=== PATIENT | male | born 1955 | race African-American/Black ===

== ENCOUNTER 2017-01-01 18:08 | Inpatient (IN) | payer OTHER ==
[~2017-01-01] VITALS: Ht 170.2 cm; Wt 68.2 kg
[~2017-01-01 18:08] MED LIST: ALDACTONE50 M1 PO; CIPRO500 M1 PO; FOLIC ACID0.4 M1 PO; K-TAB ER10 MEQ PO; LACTULOSE10 GM/153 PO; LASIX20 M1 PO; PROPRANOLOL HCL20 M1 PO; XIFAXAN550 M1 PO
--- NOTE | 2017-01-01 18:12 | NUR ---
61 YO MALE TO TRIAGE FROM HOME. PER EMS FAMILY CALLED BECAUSE THEY WANTED PTS LIVER CHECKED. PT HX OF ETOH ABUSE AND CIRRHOSIS. PT ARRIVES ALERT, CONFUSED. DENIES PAIN AT THIS TIME.
--- NOTE | 2017-01-01 18:17 | NUR ---
PA STUDENT AT BEDSIDE FOR EVAL
--- NOTE | 2017-01-01 18:18 | ED AMS/SEIZURE/WEAK/DIZZY ---
History of Present Illness General Chief Complaint: Altered Mental Status Stated Complaint: AMS Source: patient, old records, EMS Exam Limitations: confusion, poor historian, intoxication (possible) Allergies Coded Allergies: No Known Allergies (12/13/15) Reconcile Medications Folic Acid 0.4 MG TABLET 1 TAB PO DAILY VITAMIN SUPPORT Furosemide (Lasix) 20 MG TABLET 1 TAB PO DAILY cirrhosis Lactulose 10 GM/15 ML SOLUTION 45 ML PO TID cirrhosis Potassium Chloride (K-Tab ER) 10 MEQ TABLET.ER 1 TAB PO DAILY supplement Propranolol HCl 20 MG TABLET 1 TAB PO BID UNKNOWN (Reported) Rifaximin (Xifaxan) 550 MG TABLET 1 TAB PO BID cirrhosis Spironolactone 100 MG TABLET 1 TAB PO BID DIURETIC (Reported) Triage Note: 61 YO MALE TO TRIAGE FROM HOME. PER EMS FAMILY CALLED BECAUSE THEY WANTED PTS LIVER CHECKED. PT HX OF ETOH ABUSE AND CIRRHOSIS. PT ARRIVES ALERT, CONFUSED. DENIES PAIN AT THIS TIME. Triage Nurses Notes Reviewed? yes Onset: Morning Duration: hour(s): Timing: single episode today Severity: moderate No Modifying Factors: none HPI: 61-year-old male brought in by ambulance to the emergency department for altered mental status. Patient states that today he drank wine and felt increasingly confused. He states that his family wanted him to be seen so that his liver could be evaluated. He has been seen here about one year ago for hepatic encephalopathy. He admits to drinking however he says that he does not drink on a daily basis. He also complains of weakness in his extremities. He admits to recent weight gait however cannot recall amount or time period. He denies fall, trauma to head, abdominal pain, chest pain, difficulty breathing.denies falls or head trauma. (LONI SPARKS,KHANH) Vital Signs & Intake/Output Vital Signs & Intake/Output Vital Signs Date Time Temp Pulse Resp B/P B/P Pulse O2 O2 Flow FiO2 Mean Ox Delivery Rate 01/02 0956 20/68 01/02 0625 98.1 62 20 120/60 96 Room Air 01/02 0600 98.1 62 20 120/60 01/02 0210 97.1 51 18 102/60 97 Room Air 01/02 0200 97.1 51 18 102/60 01/02 0111 97.8 58 18 104/57 98 Room Air 01/01 2333 96.6 63 20 103/58 100 Room Air 01/01 2013 96.9 58 18 114/61 98 Room Air 01/01 1812 99.2 70 18 115/65 98 Room Air ED Intake and Output 01/02 0000 01/01 1200 Intake Total 1200 Output Total Balance 1200 Intake, IV 1200 Patient 150 lb Weight Weight Estimated Measurement Method Past History Travel History Traveled to [place] past 21 day No Medical History Any Pertinent Medical History? 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 No (KHANH CASTILLO) Review of Systems Review of Systems Constitutional: Reports: see HPI. EENTM: Reports: no symptoms. Respiratory: Reports: no symptoms. Cardiovascular: Reports: no symptoms. GI: Reports: see HPI. Genitourinary: Reports: no symptoms. Musculoskeletal: Reports: no symptoms. Skin: Reports: no symptoms. Neurological/Psychological: Reports: see HPI. Hematologic/Endocrine: Reports: no symptoms. Immunologic/Allergic: Reports: no symptoms. All Other Systems: Reviewed and Negative (KHANH CASTILLO) Physical Exam Physical Exam General Appearance: no apparent distress Comments: Well-developed well-nourished person in no acute distress HEENT: Normal EENT exam, extraocular motion intact, no nystagmus. Pupils equally round and reactive to light and accommodation. +scleral icterus bilaterally. Nose is atraumatic. Pharynx normal. No swelling or edema. SLIGHTLY DRY ORAL MUCOSA. Neck: Supple, no lymphadenopathy, normal range of motion without pain or tenderness Back: Nontender, Full range of motion Cardiovascular: Regular rate and rhythms no murmurs rubs or gallops, normal JVP Respiratory: Chest nontender. No respiratory distress.breath sounds clear to auscultation bilaterally Abdomen: Soft, nontender nondistended, no appreciable organomegaly. Normal bowel sounds. No ascites, NO REBOUND OR GAURDING. Extremity: No edema, no calf tenderness to palpation, normal and equal pulses. Neuro: Alert oriented to self only, motor sensory normal, cranial nerves II through XII grossly intact, +asterixis. PATELLAR REFLEXES ARE 2 PLUS BILATERALLY. NEURO EXAM REQUIRES REDIRECTION FOR COOPERATION. UNABLE TO FOLLOW CEREBELLAR TESTING. Skin: No appreciable rash on exposed skin, skin is warm and dry. UNABLE TO APPRECIATE ANY JAUNDICE ON SKIN SECONDARY TO DARK SIN. NO NOTABLE JAUNDICE ON PALMS. Psych: Mood and affect is abnormal, memory and judgment is abnormal. Core Measures ACS in differential dx? No CVA/TIA Diagnosis: No Severe Sepsis Present: No Septic Shock Present: No (LONI SPARKS,KHANH) Progress Differential Diagnosis: alcohol intoxication, CVA/stroke, dehydration, encephalitis, electrolyte imbalance, hypoglycemia, intracranial Hem., pneumonia, sepsis, UTI/pyelo, polysubstance abuse Diagnostic Imaging: Viewed by Me: Radiology Read. Discussed w/RAD: Radiology Read. Radiology Impression: ATIENT: GIANLUCA LIM PRESENT AGE: 61 PATIENT ACCOUNT NO: [id number] : 59 LOCATION: [facility] ORDERING PHYSICIAN: KHANH SPARKS SERVICE DATE: 01/01/17 EXAM TYPE: RAD - XRY-PORTABLE CHEST XRAY EXAMINATION: XR PORTABLE CHEST CLINICAL INFORMATION: Altered mental status. COMPARISON: Portable chest x-ray 12/13/2015. TECHNIQUE: Portable frontal view of the chest was obtained. FINDINGS: The lungs are hypoinflated, but clear without focal airspace consolidation. No pleural effusions or pneumothoraces are identified. Cardiomediastinal contours are within normal limits. Soft tissues are unremarkable. No acute osseous abnormality is identified. IMPRESSION: No acute pulmonary process. DICTATED BY: DEBBI STAFFORD MD DATE/TIME DICTATED:01/01/171934 CORRECTIONAL CASEWORK SPECIALIST:TANIA DATE/TIME TRANSCRIBED:01/01/171934 CONFIDENTIAL, DO NOT COPY WITHOUT APPROPRIATE AUTHORIZATION. <Electronically signed in Other Vendor System> SIGNED BY: DEBBI STAFFORD MD 01/01/171937 Initial ED EKG: SINUS RHYTHM, BORDERLINE t ABNORMALITIES, BORDERLINE PROLONGED qt INTERVAL Prior EKG: unchanged Comments: On arrival patient is only alert to person, confused about time and situation. Placed on cardiac monitor technician. Patient has history of hepatic encephalopathy and chronic alcohol use, positive scleral icterus with asterixis. Likely hepatic encephalopathy again. 01/01/2017 7:58:13 PM swallow evaluation performed. Able to sip thin liquids without coughing or choking. 01/01/2017 7:58:25 PM lactulose suppository and IV potassium ordered. Patient will be admitted for hepatic encephalopathy. (LONI SPARKS,KHANH) Plan of Care: Orders Procedure Date/time Status Heart Healthy Diet 01/02 B Active Nursing Misc 01/02 0751 Active HEPATITIS PANEL 01/02 06 Complete CBC WITHOUT DIFFERENTIAL 01/02 06 Complete BASIC ELECTROLYTES PLUS BUN&CR 01/02 06 Complete Turn and Reposition 01/02 0245 Active Skin Integrity Protocol 01/02 0245 Active POTASSIUM 01/02 0234 Complete Vital Signs 01/02 0218 Active Teach/Educate 01/02 0218 Active Pain Treatment and Response 01/02 0218 Active Nutritional Intake, Monitor 01/02 0218 Active Isolation 01/02 0218 Active Intake & Output 01/02 0218 Active Patient Care Conference 01/02 0218 Active Activity/Ambulation 01/02 0218 Active PT Evaluate & Treat 01/02 0102 Active Pathway - chart 01/02 0102 Active House Staff 01/02 0102 Active Code Status 01/02 0102 Active Therapeutic Activities 01/02 UNK Complete PT EVAL LOW COMPLEX 20 MIN 01/02 UNK Complete Gait Training 01/02 UNK Complete Lab Add-on Test 01/02 UNK Active VTE Mechanical Prophylaxis 01/02 UNK Active Vital Signs 01/02 UNK Active CIWA 01/02 UNK Active PHYSICIAN CONSULT 01/02 UNK Active Patient Data 01/01 2356 Active Lab Add-on Test 01/01 2353 Active Add-on Test (ER Only) 01/01 2345 Active PHOSPHORUS 01/01 2250 Complete MAGNESIUM 01/01 2250 Complete Intake & Output 01/01 2203 Active POTASSIUM 01/01 2200 Complete Admit to inpatient 01/01 2031 Active PARTIAL THROMBOPLASTIN TIME 01/01 1827 Complete PROTHROMBIN TIME 01/01 1827 Complete Telemetry/E Business Project Manager 01/01 181 Active URINE DRUG SCREEN FOR ER ONLY 01/01 181 Complete URINALYSIS 01/01 181 Complete TROPONIN LEVEL 01/01 181 Complete AMMONIA 01/01 181 Complete LACTIC ACID 01/01 1817 Complete ETHANOL 01/01 1817 Complete COMPREHENSIVE METABOLIC PANEL 01/01 1817 Complete CBC WITHOUT DIFFERENTIAL 01/01 1817 Complete EKG 01/01 1817 Active Current Medications Sig/Memo Start time Last Medication Dose Stop Time Status Admin Furosemide 20 MG DAILY 01/02 1000 AC 01/02 (Lasix) 0956 Potassium Chloride 10 MEQ DAILY 01/02 1000 AC 01/02 (K-Dur) 0956 Propranolol HCl 20 MG BID 01/02 1000 AC 01/02 (Inderal 20 MG 0956 Tablet) Rifaximin 550 MG BID 01/02 1000 AC 01/02 (XIFAXAN) 0956 Spironolactone 100 MG BID 01/02 1000 AC 01/02 (Aldactone) 0956 Lactulose 10 GM TID 01/02 0015 AC 01/02 (Enulose 20GM/30ML) 0957 Potassium Chloride 40 MEQ Q13H 01/01 2345 AC 01/02 (KCl 40MEQ in D5W NS 0055 1000ML) Dextrose/Sodium 1,000 ML Chloride (D5-Normal Saline) Potassium Chloride 10 MEQ ONCE ONE 01/01 1945 CAN 01/01 1946 Potassium Chloride 10 MEQ ONCE ONE 01/01 1945 CAN 01/01 1946 Laboratory Tests 01/02/17 0610: Anion Gap 8, Estimated GFR > 60, BUN/Creatinine Ratio 8.9, CBC w Diff NO MAN DIFF REQ, RBC 3.27 L, MCV 94.1 H, MCH 31.8 H, RDW 16.6 H, MPV 10.1, Gran % 57.9, Lymphocytes % 19.8 L, Monocytes % 19.9 H, Eosinophils % 1.7, Basophils % 0.7, Absolute Granulocytes 3.3, Absolute Lymphocytes 1.1 L, Absolute Monocytes 1.1 H, Absolute Eosinophils 0.1, Absolute Basophils 0, PUBS MCHC 33.8, Hepatitis A IgM Ab NONREACTIVE, Hep Bs Antigen NONREACTIVE, Hep B Core IgM Ab Conf NONREACTIVE, Hepatitis C Antibody NONREACTIVE 01/02/17 0320: 01/01/17 2250: Phosphorus 2.6, Magnesium 1.6 01/01/172116: Lactic Acid Cancelled 01/01/174: Urine Opiates Screen < 100.00, Methadone Screen < 40, Barbiturate Screen < 60, Ur Phencyclidine Scrn < 6.00, Amphetamines Screen < 100, U Benzodiazepines Scrn < 85, Urine Cocaine Screen < 50, Urine Cannabis Screen < 5.00, Urine Color YEL, Urine Clarity CLEAR, Urine pH 7.0, Ur Specific [place] 1.010, Urine Protein NEG, Urine Ketones NEG, Urine Nitrite NEG, Urine Bilirubin NEG, Urine Urobilinogen 1.0, Ur Leukocyte Esterase TRACE H, Ur Microscopic SEDIMENT EXAMINED, Urine WBC 1-3 H, Ur Epithelial Cells FEW, Urine Bacteria MANY H, Urine Hemoglobin NEG, Urine Glucose NEG 01/01/17 1827: Anion Gap 12, Estimated GFR > 60, BUN/Creatinine Ratio 8.0, Glucose 123 H, Lactic Acid 1.8, Calcium 8.2 L, Total Bilirubin 2.9 H, AST 36, ALT 39, Alkaline Phosphatase 144 H, Ammonia 212 H, Troponin I < 0.01, Total Protein 7.1, Albumin 3.1 L, Globulin 4.0, Albumin/Globulin Ratio 0.8 L, PT 16.5 H, INR 1.58 H, APTT 43 H, CBC w Diff NO MAN DIFF REQ, RBC 3.52 L, MCV 93.6, MCH 31.6 H, RDW 16.9 H, MPV 9.7, Gran % 56.7, Lymphocytes % 20.5, Monocytes % 19.0 H, Eosinophils % 2.7, Basophils % 1.1, Absolute Granulocytes 3.5, Absolute Lymphocytes 1.3, Absolute Monocytes 1.2 H, Absolute Eosinophils 0.2, Absolute Basophils 0.1, PUBS MCHC 33.7, Serum Alcohol < 10.0 Comments: 01/01/2017 8:22:03 PM patient's case discussed by me with the hospitalist. Plan repeat potassium and so long as the potassium is improving patient will be admitted to the general medical floor. (KARLA RANDALL,STEHPEN Musa) Departure Departure Time of Disposition: 1954 Disposition: STILL A PATIENT Condition: Stable Clinical Impression Primary Impression: Hepatic encephalopathy Referrals: ISRA RANDALL,JAMES VEE Departure Forms: Customer Survey General Discharge Information Admission Note Documentation of Exam: Documentation of any treatments & extenuating circumstances including Concerns Regarding Discharge (functional status, medication knowledge or non-compliance, living conditions, etc.) that warrant an admission rather than observation: Patient requiring IV potassium for hypokalemia, requiring IV hydration, lactulose for hepatic encephalopathy, trending CMP to follow potassium. Discharged at this time would be medically harmful. (KHANH CASTILLO) Admission Note Spoke With: ANNI NAQVI MD (KARLA RANDALL,STEPHEN Musa) Critical Care Note Critical Care Note Critical Care Time: 30-74 min (KHANH CASTILLO) ED Attending Observation Initial Observation Note: I have seen and personally examined GIANLUCA LIM on 01/01/17 at 1832. I agree with the current emergency department documentation. The disposition (admission or discharge) is uncertain at this time, he needs a period of observation for the following reason(s): The ED Nurse caring for this patient has been personally informed as to what the patient is being observed for. (KHANH CASTILLO)
--- NOTE | 2017-01-01 18:18 | NUR ---
DAUGHTER MARYANN [phone]
--- NOTE | 2017-01-01 18:29 | NUR ---
IV EST. BLOOD WORK DRAWN AND SENT TO LAB AT THIS TIME
[2017-01-01 18:38] LABS: ABSOLUTE BASOPHIL COUNT 0.1 /CUMM (0.0-0.2); ABSOLUTE EOSINOPHIL COUNT 0.2 /CUMM (0.0-0.7); ABSOLUTE GRANULOCYTE CT 3.5 /CUMM (1.4-6.5); ABSOLUTE LYMPH COUNT 1.3 /CUMM (1.2-3.4); ABSOLUTE MONOCYTE COUNT 1.2 /CUMM (0.10-0.60); BASOPHIL % 1.1 % (0.0-2.0); EOSINOPHIL % 2.7 % (0-5); GRANULOCYTE % 56.7 % (42.2-75.2); MEAN CORPUSCULAR HGB 31.6 PG (27.0-31.0); MEAN CORPUSCULAR HGB CONC 33.7 G/DL (33.0-37.0); MEAN CORPUSCULAR VOLUME 93.6 FL (80.0-94.0); MEAN PLATELET VOLUME 9.7 FL (7.4-10.4); PLATELET COUNT 86 /CUMM (130-400); RBC DISTRIBUTION WIDTH 16.9 % (11.5-14.5); RED BLOOD CELL CT 3.52 /CUMM (4.70-6.10); WHITE BLOOD CELL COUNT 6.2 /CUMM (4.8-10.8)
--- NOTE | 2017-01-01 19:08 | NUR ---
CRITICAL TEST RESULTS [id number] GIANLUCA LIM 61 M TESTS AND RESULTS: POTASSIUM 2.2 Results received and read back by: VENECIA VILLAGOMEZ Results received date and time: 01/01/171908 The following provider was notified of the results, and read the results back: Notified date and time: 01/01/17 at 1903
--- NOTE | 2017-01-01 19:26 | NUR ---
PT MEDICATED WITH NS INFUSING AT 500MLS/HR PER EMAR
--- NOTE | 2017-01-01 19:38 | RADIOLOGY REPORT ---
EXAMINATION: XR PORTABLE CHEST CLINICAL INFORMATION: Altered mental status. COMPARISON: Portable chest x-ray 12/13/2015. TECHNIQUE: Portable frontal view of the chest was obtained. FINDINGS: The lungs are hypoinflated, but clear without focal airspace consolidation. No pleural effusions or pneumothoraces are identified. Cardiomediastinal contours are within normal limits. Soft tissues are unremarkable. No acute osseous abnormality is identified. IMPRESSION: No acute pulmonary process.
--- NOTE | 2017-01-01 19:54 | NUR ---
BRIDGER IVEY AT BEDSIDE
--- NOTE | 2017-01-01 20:03 | NUR ---
PTS SISTER KRISTINA [phone]
[2017-01-01] MEDS ORDERED: PROPRANOLOL HCL20 M1 PO (20:33)
[2017-01-01] MEDS ORDERED: SPIRONOLACTONE100 M1 PO (20:33)
--- NOTE | 2017-01-01 20:40 | NUR ---
HOUSE STAFF AT BEDSIDE. 10 MEQ KCL INITIATED AT 100MLS/HR.
--- NOTE | 2017-01-01 21:00 | NUR ---
40 MEQ POT CHLOR PO NOW PER DR NAQVI. NO DIFFICULTY SWALLOWING. PER DR NAQVI, LACTULOSE ENEMA NOT TO ADMINISTERED UNTIL AFTER POT CHLOR INFUSION COMPLETED
--- NOTE | 2017-01-01 21:42 | NUR ---
SECOND 10 MEQ KCL INITATED AT 100MLS/HR PER EMAR
--- NOTE | 2017-01-01 22:17 | NUR ---
URINE TRIO OBTAINED AND SENT TO LAB
--- NOTE | 2017-01-01 23:04 | NUR ---
REPEAT POTASSIUM OBTAINED AND SENT TO LAB
--- NOTE | 2017-01-01 23:45 | NUR ---
CRITICAL TEST RESULTS [id number] GIANLUCA LIM 61 M TESTS AND RESULTS: POTASSIUM 2.5 Results received and read back by: VENECIA VILLAGOMEZ Results received date and time: 01/01/17 5629 The following provider was notified of the results, and read the results back: Notified date and time: 01/01/17 at 2441
[2017-01-02] VITALS (7 sets, daily range): BP systolic 102–120; BP diastolic 60–70
[2017-01-02 00:12] LABS: PT 16.5 SEC (9.4-12.5); PTT 43 SEC (25-37)
--- NOTE | 2017-01-02 00:26 | NUR ---
HOUSE STAFF AT BEDSIDE FOR PT EVAL
--- NOTE | 2017-01-02 00:33 | NUR ---
PT'S RM ASSIGNMENT 220 BED 1
--- NOTE | 2017-01-02 00:52 | History & Physical ---
QUOC [place] [place] 0051: General Information and HPI MD Statement: I have seen and personally examined GIANLUCA LEGGETT and documented this H&P. The patient is a 61 year old M who presented with a patient stated chief complaint of confusion. Source of Information: patient, old records Exam Limitations: not alert/orientated, clinical condition, confusion History of Present Illness: Mr. 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 History is obtained from patient, who is confused at the time of the interview and unable to provide detailed history, as well as ED notes and EMR. Patient was noted to be confused by his daughter who lives with him who subsequently called EMS who brought patient to the ED. Patient reports that he feels confused. He is oriented to name and place, but not time. He knows the name of the president. He admits to drinking about two beers daily but denies drinking on the day of current presentation. Patient was admitted to [facility] approximately one year ago for hepatic encephalopathy (12/13/15-12/18/15) felt to be secondary to possible UTI as well as noncompliance with outpatient medications, including lactulose and rifaximin. Patient reports that he has been following up with his licensed physical therapist Dr. Nicky Delcid at [facility] and taking his medications but cannot recall the names. He has a history of medium/large esophageal varices, but no history of bleeding, SBP or hepatorenal syndrome. Allergies/Medications Allergies: Coded Allergies: No Known Allergies (12/13/15) Home Med list Folic Acid 0.4 MG TABLET 1 TAB PO DAILY VITAMIN SUPPORT Furosemide (Lasix) 20 MG TABLET 1 TAB PO DAILY cirrhosis Lactulose 10 GM/15 ML SOLUTION 45 ML PO TID cirrhosis Potassium Chloride (K-Tab ER) 10 MEQ TABLET.ER 1 TAB PO DAILY supplement Propranolol HCl 20 MG TABLET 1 TAB PO BID UNKNOWN (Reported) Rifaximin (Xifaxan) 550 MG TABLET 1 TAB PO BID cirrhosis Spironolactone 100 MG TABLET 1 TAB PO BID DIURETIC (Reported) Compliance With Home Meds: POOR Past History Travel History Traveled to [place] past 21 day No Medical History Neurological: 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 Home Who Do You Live With? child Services at Home: None Primary Language: Kyrgyz Smoking Status: Current Everyday Smoker (About 3 Cigarettes Per Day) ETOH Use: alcoholic Illicit Drug Use: denies illicit drug use Functional Ability ADLs Unknown: dressing, eating, toileting, bathing. Ambulation: independent IADLs Unknown: shopping, housework, finances, food prep, telephone, transportation, medication admin. Employment History Employment Retired Profession/Employer [employer] Review of Systems Review of Systems Constitutional: Denies: chills, fever. EENTM: Reports: no symptoms. Cardiovascular: Reports: no symptoms. Denies: palpitations. Respiratory: Reports: cough, sputum production. GI: Denies: abdominal pain, nausea, vomiting. Genitourinary: Reports: frequency (chronic). Musculoskeletal: Reports: no symptoms. Skin: Reports: no symptoms. Neurological/Psychological: Reports: confusion. Denies: headache. Hematologic/Endocrine: Reports: no symptoms. Immunologic/Allergic: Reports: no symptoms. All Other Systems: Reviewed and Negative Exam & Diagnostic Data Last 24 Hrs of Vital Signs/I&O Vital Signs Date Time Temp Pulse Resp B/P B/P Pulse O2 O2 Flow FiO2 Mean Ox Delivery Rate 01/02 0200 97.1 51 18 102/60 01/02 0111 97.8 58 18 104/57 98 Room Air 01/01 2333 96.6 63 20 103/58 100 Room Air 01/01 2013 96.9 58 18 114/61 98 Room Air 01/01 1812 99.2 70 18 115/65 98 Room Air Intake & Output 01/02 0800 01/02 0000 01/01 1600 Intake Total 1200 Output Total Balance 1200 Intake, IV 1200 Patient 68.039 kg 68.039 kg Weight Weight Reported by Patient Estimated Measurement Method Physical Exam General Appearance Alert, No Acute Distress, Oriented to Person and Place, but Not Time, Confused Skin No Rashes Skin Temp/Moisture Exam: Warm/Dry HEENT Atraumatic, Mucous Membr. moist/pink, Scleral Icterus Neck Supple Cardiovascular Regular Rate, Normal S1, Normal S2, No Murmurs, Gallops, Rubs Lungs Clear to Auscultation Abdomen Soft, No Tenderness, Positive Bowel Sounds, Distended Neurological Asterixis Extremities No Clubbing, No Cyanosis, No Edema Breasts Bilateral gynecomastia Last 24 Hrs of Labs/Jacques: Laboratory Tests 01/01/17 2250: Phosphorus 2.6, Magnesium 1.6 01/01/172116: Lactic Acid Cancelled 01/01/172113: Urine Opiates Screen < 100.00, Methadone Screen < 40, Barbiturate Screen < 60, Ur Phencyclidine Scrn < 6.00, Amphetamines Screen < 100, U Benzodiazepines Scrn < 85, Urine Cocaine Screen < 50, Urine Cannabis Screen < 5.00, Urine Color YEL, Urine Clarity CLEAR, Urine pH 7.0, Ur Specific [place] 1.010, Urine Protein NEG, Urine Ketones NEG, Urine Nitrite NEG, Urine Bilirubin NEG, Urine Urobilinogen 1.0, Ur Leukocyte Esterase TRACE H, Ur Microscopic SEDIMENT EXAMINED, Urine WBC 1-3 H, Ur Epithelial Cells FEW, Urine Bacteria MANY H, Urine Hemoglobin NEG, Urine Glucose NEG 01/01/17 1827: Anion Gap 12, Estimated GFR > 60, BUN/Creatinine Ratio 8.0, Glucose 123 H, Lactic Acid 1.8, Calcium 8.2 L, Total Bilirubin 2.9 H, AST 36, ALT 39, Alkaline Phosphatase 144 H, Ammonia 212 H, Troponin I < 0.01, Total Protein 7.1, Albumin 3.1 L, Globulin 4.0, Albumin/Globulin Ratio 0.8 L, PT 16.5 H, INR 1.58 H, APTT 43 H, CBC w Diff NO MAN DIFF REQ, RBC 3.52 L, MCV 93.6, MCH 31.6 H, RDW 16.9 H, MPV 9.7, Gran % 56.7, Lymphocytes % 20.5, Monocytes % 19.0 H, Eosinophils % 2.7, Basophils % 1.1, Absolute Granulocytes 3.5, Absolute Lymphocytes 1.3, Absolute Monocytes 1.2 H, Absolute Eosinophils 0.2, Absolute Basophils 0.1, PUBS MCHC 33.7, Serum Alcohol < 10.0 Diagnostic Data EKG Results Normal sinus rhythm HR 65 QTc 491 CXR Results No acute pulmonary process. Assessment/Plan Assessment: Mr. 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 #Hepatic encephalopathy: In the setting of decompensated alcoholic cirrhosis likely precipitated by noncompliance with medications. Ammonia 212 on admission. Physical exam remarkable for asterixis. Total bilirubin 2.9. INR 1.58. No evidence of infection. CXR clear. UA unremarkable. Sees licensed physical therapist Dr. Delcid at [facility]. MELD score of 16 corresponding to estimated 3-month mortality of 6%. Has esophageal varices but no history of bleeding, SBP or hepatorenal syndrome. * Admit to General Medicine. * GI consult placed. Appreciate their recs. * Continue vvvab-of-czhbggzvk lactulose 10 mg PO TID titrating to 3 bowel movements per day and rifaximin 550 mg PO BID. * Continue igvzo-ac-bmcbyelcj Lasix 20 mg PO daily, spironolactone 100 mg PO BID and propranolol 20 mg PO daily. * Check hepatitis panel. #Hypokalemia: K 2.2 on initial presentation. Improved to 2.9 after aggressive IV and oral K supplementation. No EKG changes associated with hypokalemia. * Continue aggressive K supplementation with frequent K monitoring. #Alcohol dependence: Admits to drinking 2 beers daily. Serum alcohol <10 on admission. * [facility] protocol to monitor for signs/symptoms of alcohol withdrawal. * Hold Ativan for now. Diet: Heart Healthy with 2 g Na restriction DVT PPx: ALPs CODE: FULL As Ranked By This Provider Problem List: 1. Hepatic encephalopathy 2. Hypokalemia 3. Altered mental status 4. Decompensated hepatic cirrhosis 5. Alcoholic cirrhosis of liver 6. Thrombocytopenia Core Measures/Miscellaneous Acute Coronary Syndrome ACS Diagnosis: No Cerebrovascular Accident CVA/TIA Diagnosis: No Congestive Heart Failure CHF Diagnosis: No VTE (View Protocol) VTE Risk Factors: Acute medical illness, Age > 40, Smoking No [facility] VTE prophylaxis d/t: No contraindications No VTE Pharm Prophylaxis d/t: Platelets below ref range VTE Diagnosis: No VTE Type: NONE VTE Confirmed by (Test): NONE Sepsis (View Protocol) Severe Sepsis Present: No Septic Shock Septic Shock Present: No Miscellaneous Documentation Attending Case Discussed With: DRISS RANDALL,[facility] Primary Care Physician: PATIENT HAS NO PRIMARY CARE DR Patient sees these Specialists Manager Dairy Nicky Delcid MD Level of Patient Care: General Medicine HARIS COTTON 01/02/17 0237: Resident Review Statement Resident Statement: examined this patient, discussed with post graduate internship, agreed with post graduate internship Other Findings: This is a 61 years old man with alcoholic liver cirrhosis who usually follows up for care at [facility] who was brought in by ambulance after the daughter noted that is getting more confused than usual. The patient reports to continue drinking alcohol downplaying his the amount he takes to about 2 beers a day. He reports to continue taking his medication though he does not remember the names of the medications, she volunteers that he has 2-3 bowel motions a day. He denies any abdominal pain, nausea, vomiting, pain during micturition, change in urine frequency, dizziness, lightheadedness or palpitations. On arrival the patient had stable vital signs Physical examination: Patient is alert and oriented to person and place but not to time [saying it's September and the season is fall], she has tremors in the upper limbs, no spider Nevi, gynecomastia, no ascites, no edema of the lower limbs, tinge of jaundice more prominent in the eyes Labs showed anemia 11.1/33 with platelet count of 86, severe hypokalemia 2.2 repeated afraid replacement 2.5, INR of 1.58, magnesium of 1.6, T bili of 2.9, ammonia of 212, ALP of 144 and hypoalbuminemia of 3.1 U tox is negative for drugs of abuse and alcohol level was less than 10 UA shows leukocyte esterase which is high with WBC of 123 but negative nitrites Calculated meld score is 16 Assessment and plan 61 years old with known alcoholic cirrhosis presenting with episode of confusion. On presentation found to be oriented to person and place but not to time, he has tremors, gynecomastia but no ascites or peripheral edema. Patient has calculated MELD score of 16 [in November 2015 it was 14] Admitting the patient to general medicine floor Aggressive potassium correction with oral and IV potassium Started the patient on lactulose 10 g 3 times a day with target of 3 bowel motions Heart health diet with 2 g sodium restriction CIWA score while the patient is not on Ativan, to be started if start scoring Continue home liver cirrhosis medication rifaximin, spironolactone [patient has propanol on medication but her last GI notable supposed to be on Nadolol], please call to confirm medications the daughter of the patient called but could not be reached Medication claim history shows propranolol Patient is full code Alps only for DVT prophylaxis DRISS RANDALL, [facility] 01/02/17 0543: Attending MD Review Statement Attending Statement Attending MD Statement: examined this patient, discuss w/resident/PA/TELEVISION CABLE INSTALLER, agreed w/resident/PA/TELEVISION CABLE INSTALLER Attending Assessment/Plan: 61 yo M with h/o alcoholic cirrhosis s/p TIPS procedure for refractory ascites but this was downgraded because of encephalopathy (in the setting of resumption of alcohol), and eventually occluded, known medium/large varices, is brought in for evaluation of altered mentation. He continues to consume alcohol but reports not more than 2 beers per day. History is not reliable as patient is not oriented to place, person or time. He offers no complaints. Please note, I evaluated the patient about 4 hours prior to my residents did. Vitals stable. Exam: Scleral icterus+, awake, not oriented, asterixis+. Labs: Plt 86, INR 1.58, K 2.2 --> 2.5 --> 2.9, T. Bili 2.9, Alk phos 144, ammonia 212 , trop neg, UA neg, alcohol < 10, Utox neg. CXR neg. EKG SR. 1. Decompensated liver cirrhosis (MELD 16) and recurrent hepatic encephalopathy 2/2 non compliance with lactulose/rifaximin and hypokalemia. No evidence of acute infection. UA and CXR are neg. No overt bleeding. GM admit, resume lactulose TID (titrate to 3 BM's per day) and rifaximin. Replete potassium to > 4.0. Place on 2 g sodium diet, no fluid restriction. Resume lasix, propranolol and spironolactone. GI consult in AM. Check hep panel. Place on CIWA protocol, no ativan for now. DVT ppx Alps. Full code.
--- NOTE | 2017-01-02 00:52 | Admission Certification ---
Admission Certification Certification Statement - As attending physician, I certify that at the time of - admission, based on clinical presentation, severity of - symptoms, need for further diagnostic testing and - therapeutic interventions, and risk of adverse outcomes - without in-hospital treatment, in my clinical assessment, - this patient requires an acute hospital stay for a minimum - of two nights or longer. I have also considered psychsocial - factors such as support system, advanced age, financial - issues, cognitive issues, and failed out-patient treatments, - past re-admission history, safety of patient, and lack of - compliance as applicable. Specific rationale supporting this admission is: Hepatic encephalopathy.
--- NOTE | 2017-01-02 01:17 | NUR ---
PT MEDICATED WITH KCL IN D5W AT 75MLS/HR, 60 MEQ KDUR AND 1 LACTULOSE ENEMA PER EMAR
--- NOTE | 2017-01-02 03:39 | NUR ---
NURSING NOTE: LATE ENTRY. PT ARRIVED TO FLOOR FROM ED BY STRETCHER. PT IS ALERT AND ORIENTED TO SELF ONLY. BP 102/60, HR 51, MADE AWARE. 2 EKGS DONE IN ED. POTASSIM 2.5. PT GIVEN 2 IV BOLUSES AND 40 MEQ PO POTASSIUM. PT CURRENTLY RECEIVING D5W NS W/ 40 MEQ KCL @ 75 ML/HR. SEIZURE PRECAUTIONS IN PLACE FOR HEPATIC ENCEPHALOPATHY. FALL PRECAUTIONS IN PLACE. PT REPORTS HIS LAST DRINK WAS ON MONDAY 01/01 AND SAYS HE MOSTLY DRINKS BEER. PT UNABLE TO STATE HOW MUCH HE DRINKS B/C OF THE CONFUSION. PT RECEIVED LACTULOSE ENEMA IN ED. PTS SKIN INTACT, NO BREAKDOWN NOTED. ALPS ON. AWAIT FURTHER ORDERS FROM MD. INFO PACKET GIVEN. PT SHOWN HOW TO USE CALL LIGHT SYSTEM. WILL CONTINUE TO MONITOR.
--- NOTE | 2017-01-02 04:00 | NUR ---
NURSING NOTE: PT POTASSIUM LEVEL DRAWN AND CAME BACK AT 2.9. CRITICAL LAB VALUE REPORTED TO MD. 40 MEQ POTASSIUM X1 ORDERED AND GIVEN PER EMAR. PT DENIES SYMPTOMS. VSS. WILL CONTINUE TO MONITOR.
[2017-01-02 08:52] LABS: ABSOLUTE BASOPHIL COUNT 0 /CUMM (0.0-0.2); ABSOLUTE EOSINOPHIL COUNT 0.1 /CUMM (0.0-0.7); ABSOLUTE GRANULOCYTE CT 3.3 /CUMM (1.4-6.5); ABSOLUTE LYMPH COUNT 1.1 /CUMM (1.2-3.4); ABSOLUTE MONOCYTE COUNT 1.1 /CUMM (0.10-0.60); BASOPHIL % 0.7 % (0.0-2.0); EOSINOPHIL % 1.7 % (0-5); GRANULOCYTE % 57.9 % (42.2-75.2); HEMATOCRIT 30.8 % (42-52); MEAN CORPUSCULAR HGB 31.8 PG (27.0-31.0); MEAN CORPUSCULAR HGB CONC 33.8 G/DL (33.0-37.0); MEAN CORPUSCULAR VOLUME 94.1 FL (80.0-94.0); MEAN PLATELET VOLUME 10.1 FL (7.4-10.4); RBC DISTRIBUTION WIDTH 16.6 % (11.5-14.5); RED BLOOD CELL CT 3.27 /CUMM (4.70-6.10); WHITE BLOOD CELL COUNT 5.7 /CUMM (4.8-10.8)
[2017-01-02 11:22] LABS: PLATELET COUNT 63 /CUMM (130-400)
--- NOTE | 2017-01-02 12:16 | PN- Att Addend ---
Attending Addendum Attending Brief Note Patient seen and examined. Plan of care discussed with the medical team and the patient. Available lab work and radiology test reports were reviewed. Patient currently awake and appears to be oriented. Denies any abdominal pain nausea vomiting or fevers. Vital Signs Date Time Temp Pulse Resp B/P B/P Pulse O2 O2 Flow FiO2 Mean Ox Delivery Rate 01/02 0956 20/68 01/02 0625 98.1 62 20 120/60 96 Room Air 01/02 0600 98.1 62 20 120/60 01/02 0210 97.1 51 18 102/60 97 Room Air 01/02 0200 97.1 51 18 102/60 01/02 0111 97.8 58 18 104/57 98 Room Air 01/01 2333 96.6 63 20 103/58 100 Room Air 01/01 2013 96.9 58 18 114/61 98 Room Air 01/01 1812 99.2 70 18 115/65 98 Room Air Intake & Output 01/02 1600 01/02 0800 01/02 0000 Intake Total 640 1200 Output Total 250 Balance 390 1200 Intake, IV 300 1200 Intake, Oral 340 Output, Urine 250 Patient 150 lb 150 lb Weight Weight Reported by Patient Estimated Measurement Method Exam: General: Patient awake alert with slight confusion but without any distress CVS: S1 plus S2 without any murmur or gallops Chest: Few scattered crepitation without any wheeze. There is no respiratory distress. Abdomen: Soft slightly distended nontender, bowel sound present, no guarding or rebound TRAFFIC INCIDENT MANAGEMENT MANAGER: Awake alert but slightly confused but no tremors; without any focal neuro deficit and follows command appropriately Extremities: No edema; no clubbing or cyanosis noted Laboratory Tests 01/02 01/02 01/01 0610 0320 2250 Chemistry Sodium (137 - 145 mmol/L) 142 Potassium (3.5 - 5.1 mmol/L) 3.1 L 2.9 *L 2.5 *L Chloride (98 - 107 mmol/L) 113 H Carbon Dioxide (22 - 30 mmol/L) 22 Anion Gap (5 - 16) 8 BUN (9 - 20 mg/dL) 8 L Creatinine (0.7 - 1.2 mg/dL) 0.9 Estimated GFR (>60 ml/min) > 60 BUN/Creatinine Ratio (7 - 25 %) 8.9 Phosphorus (2.5 - 4.5 mg/dL) 2.6 Magnesium (1.6 - 2.3 mg/dL) 1.6 Hematology CBC w Diff NO MAN DIFF REQ WBC (4.8 - 10.8 /CUMM) 5.7 RBC (4.70 - 6.10 /CUMM) 3.27 L Hgb (14.0 - 18.0 G/DL) 10.4 L Hct (42 - 52 %) 30.8 L MCV (80.0 - 94.0 FL) 94.1 H MCH (27.0 - 31.0 PG) 31.8 H RDW (11.5 - 14.5 %) 16.6 H Plt Count (130 - 400 /CUMM) 63 L MPV (7.4 - 10.4 FL) 10.1 Gran % (42.2 - 75.2 %) 57.9 Lymphocytes % (20.5 - 51.1 %) 19.8 L Monocytes % (1.7 - 9.3 %) 19.9 H Eosinophils % (0 - 5 %) 1.7 Basophils % (0.0 - 2.0 %) 0.7 Absolute Granulocytes (1.4 - 6.5 /CUMM) 3.3 Absolute Lymphocytes (1.2 - 3.4 /CUMM) 1.1 L Absolute Monocytes (0.10 - 0.60 /CUMM) 1.1 H Absolute Eosinophils (0.0 - 0.7 /CUMM) 0.1 Absolute Basophils (0.0 - 0.2 /CUMM) 0 PUBS MCHC (33.0 - 37.0 G/DL) 33.8 Serology Hepatitis A IgM Ab (NONREACTIVE) NONREACTIVE Hep Bs Antigen (NONREACTIVE) NONREACTIVE Hep B Core IgM Ab Conf (NONREACTIVE) NONREACTIVE Hepatitis C Antibody (NONREACTIVE) NONREACTIVE 01/01 01/01 2117 2114 Chemistry Lactic Acid Cancelled Toxicology Urine Opiates Screen (>2000 NG/ML) < 100.00 Methadone Screen (>300 NG/ML) < 40 Barbiturate Screen (>200 NG/ML) < 60 Ur Phencyclidine Scrn (>25 NG/ML) < 6.00 Amphetamines Screen (>1000 NG/ML) < 100 U Benzodiazepines Scrn (>200 NG/ML) < 85 Urine Cocaine Screen (>300 NG/ML) < 50 Urine Cannabis Screen (>50 NG/ML) < 5.00 Urines Urine Color (YEL,AMB,STR) YEL Urine Clarity (CLEAR) CLEAR Urine pH (5.0 - 8.0) 7.0 Ur Specific [place] (1.001 - 1.035) 1.010 Urine Protein (NEG,<30 MG/DL) NEG Urine Ketones (NEG) NEG Urine Nitrite (NEG) NEG Urine Bilirubin (NEG) NEG Urine Urobilinogen (0.1 - 1.0 EU/dl) 1.0 Ur Leukocyte Esterase (NEG) TRACE H Ur Microscopic SEDIMENT EXAMINED Urine WBC (0 - 2 /HPF) 1-3 H Ur Epithelial Cells (NONE,FEW) FEW Urine Bacteria (NEG/NONE) MANY H Urine Hemoglobin (NEG) NEG Urine Glucose (N MG/DL) NEG 01/01 1827 Chemistry Sodium (137 - 145 mmol/L) 141 Potassium (3.5 - 5.1 mmol/L) 2.2 *L Chloride (98 - 107 mmol/L) 105 Carbon Dioxide (22 - 30 mmol/L) 24 Anion Gap (5 - 16) 12 BUN (9 - 20 mg/dL) 8 L Creatinine (0.7 - 1.2 mg/dL) 1.0 Estimated GFR (>60 ml/min) > 60 BUN/Creatinine Ratio (7 - 25 %) 8.0 Glucose (65 - 99 mg/dL) 123 H Lactic Acid (0.7 - 2.1 mmol/L) 1.8 Calcium (8.4 - 10.2 mg/dL) 8.2 L Total Bilirubin (0.2 - 1.3 mg/dL) 2.9 H AST (17 - 59 U/L) 36 ALT (21 - 72 U/L) 39 Alkaline Phosphatase (< 127 U/L) 144 H Ammonia (9 - 30 umol/L) 212 H Troponin I (<0.11 ng/ml) < 0.01 Total Protein (6.3 - 8.2 g/dL) 7.1 Albumin (3.5 - 5.0 g/dL) 3.1 L Globulin (1.9 - 4.2 gm/dL) 4.0 Albumin/Globulin Ratio (1.1 - 2.2 %) 0.8 L Coagulation PT (9.4 - 12.5 SEC) 16.5 H INR (0.90 - 1.17) 1.58 H APTT (25 - 37 SEC) 43 H Hematology CBC w Diff NO MAN DIFF REQ WBC (4.8 - 10.8 /CUMM) 6.2 RBC (4.70 - 6.10 /CUMM) 3.52 L Hgb (14.0 - 18.0 G/DL) 11.1 L Hct (42 - 52 %) 33.0 L MCV (80.0 - 94.0 FL) 93.6 MCH (27.0 - 31.0 PG) 31.6 H RDW (11.5 - 14.5 %) 16.9 H Plt Count (130 - 400 /CUMM) 86 L MPV (7.4 - 10.4 FL) 9.7 Gran % (42.2 - 75.2 %) 56.7 Lymphocytes % (20.5 - 51.1 %) 20.5 Monocytes % (1.7 - 9.3 %) 19.0 H Eosinophils % (0 - 5 %) 2.7 Basophils % (0.0 - 2.0 %) 1.1 Absolute Granulocytes (1.4 - 6.5 /CUMM) 3.5 Absolute Lymphocytes (1.2 - 3.4 /CUMM) 1.3 Absolute Monocytes (0.10 - 0.60 /CUMM) 1.2 H Absolute Eosinophils (0.0 - 0.7 /CUMM) 0.2 Absolute Basophils (0.0 - 0.2 /CUMM) 0.1 PUBS MCHC (33.0 - 37.0 G/DL) 33.7 Toxicology Serum Alcohol (<10 MG/DL) < 10.0 Assessment plan * Hepatoencephalopathy- continue current medications * Alcohol abuse- patient states that he occasionally continues to drink last drink was possibly 2 days ago; his alcohol level on admission was less than 10; patient will need to be watched for alcohol withdrawal in case he is undre reporting his alcohol use * Low platelets count likely secondary to cirrhosis * Hypokalemia- improved but potassium level still 3.1; please give oral potassium and recheck potassium tomorrow
--- NOTE | 2017-01-02 20:08 | Cons- Gastroenterology ---
General Information and HPI Consulting Request Date of Consult: 01/02/17 Requested By: DRISS RANDALL,LADONNAALAKSHMI Reason for Consult: I was called by the hospitalist service earlier today to assess encephalopathy in a patient with alcoholic cirrhosis. Source of Information: patient, old records (scant) Exam Limitations: not alert/orientated (impoved - now A & O x 3), clinical condition, fair historian History of Present Illness: 61 y/o [place] male, history of alcoholic cirrhosis, followed at the [facility] liver unit, by Dr. Champagne & most recently, by Dr. Nicky Delcid. He contacts her periodically for paracentesis, when his abdomen gets distended. He previously went for quite some time between visits at the [facility], but currently claims to be compliant. In fact, he stated that he had an abdominal ultrasound done there about a month ago, results unknown. He has no PMD. He has a history of alcohol and drug abuse. He denied any IVDA. He claimed he last snorted crack cocaine a few years ago. He is a 15 pk yr cigarette smoker. 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 The patient had TIPS at [facility] years ago, I believe for refractory ascites, as well as for large varices. His TIPS were downsized due to PSE, in the setting of ongoing EtOH abuse, & the TIPS reportedly occluded. He previously had been noncompliant with his medications, which included Inderal 20 mg BID, Lactulose 30g TID, Rifaximin 550 mg BID, Lasix 20 mg daily, Aldactone 100 mg BID, Folate 0.4 mg daily, & KCl 10 meq daily, although he claimed he was now taking them (? validity, as he cannot recall their names). He has periods of intermittent confusion and lethargy. Has a known history of cholelithiasis, with an intact GB. He claimed his only abdominal surgery was for an umbilical hernia repair. He moved in with his daughter, Yue Leggett, in 2014. She noticed he was confused, and called EMS, who brought the patient to the [place] [facility], where he arrived 01/01/17, at 6:08 p.m. Upon presentation, BP 115/65, P 70, R 18, T 99.2, O2 sat RA 98%. The patient felt confused on presentation. He was A & O x 2 (not to time). He admitted to still drinking about 2 beers a day, but denied any alcohol intake on the day of admission. The patient received IV NS bolus x 1L, along with KCl, Lactulose, & KCl in the ER. He was found to be markedly hypoK+ on admission, with K+ 2.2 (*see labs). His mentation is much improved at the time of my GI consult, & he is currently A & Ox3. He denied any history of overt GI bleeding, SBP, HRS or HPS, although records state he remotely had a duodenal ulcer, in addition to esophageal varices. He claimed he has been HIV negative in the past. He denied any history of viral hepatitis. He does have tattoos. He denied any blood transfusions. He denied using any aspirin, NSAIDs, sedative hypnotics, or recent illicit drugs. He denied any abdominal pain, GI, vomiting, GERD, odynophagia, dysphagia, early satiety, diarrhea, constipation, obstipation, tenesmus, rectal bleeding, or melena. He denied any fevers, chills, jaundice, dark urine, light stool, or pruritus. His appetite is fair. He denied any significant weight loss. He denied any recent increased abdominal girth or peripheral edema. He claimed he has not had an abdominal tap for quite some time. He has had EGD at [facility], unsure as to when last done. He admits he has not been compliant with a baseline screening colonoscopy, which had been advised by [facility]. There is no family history of GI Ca, GI disease, or inherited liver disease. It sounds like the patient's father had alcoholic pancreatitis. He denied any history of alcohol related seizures. He does have a history of alcohol withdrawal and DTs. His CIWA have been running around 2. He denied any recent head trauma. He denies any symptoms of UTI or URI. There was no chest pain or shortness of breath. He denied any rashes. He denies any arthralgias, except for DJD in the left shoulder. 01/01/17: Admission chest x-ray was unremarkable. He was last admitted to [facility] 12/13/2015 - 12/18/2015 with hepatic encephalopathy, felt to be from a combination of noncompliance with the above medications, hypokalemia, and E. Coli UTI, treated with Cipro. He had small to moderate ascites then, but as he improved clinically, his abdomen was not tapped then. 12/30/14: B12 893, folate 17.5, HgA1C 4.5 *As of 01/02/17, the patient's inpatient medications include Inderal 20 mg po BID, Aldactone 100 mg po BID, Rifaximin 550 mg po BID, KCl 10 meq daily, Lasix 20 mg daily, Lactulose 10g po TID & IVF: D5 1/2NS with 40 meq KCl/L @ 75 cc/hr. His menation has improved since admission, as per his RN. No cultures have been sent this admission. He is tolerating solids and ambulating with assistance. 01/01/17: Admission labs- WBC 6.2, H/H 11.1/33, MCV 93.6, RDW 16.9, PLT 86; glucose 123, BUN/Cr 8/1.0, GFR > 60, Na 141, *K 2.2, HCO3 24, AG 12, lactate 1.8 , Ca 8.2, Mg 1.6, PO4 2.6, albumin 3.1, globulin 4.0, TBil 2.9 (without fractionation), alk phos 144, AST 36, ALT 39, *NH3 212, troponin < 0.01, [EtOH] < 10, PT 16.5, INR 1.58, PTT 43; U/A- clear yellow, 1.010, 7.0, 1-3 WBC, many bact, few eptih, micro- otherwise neg, neg nitrite, tr esterase; *Utox - neg. 01/01/17: *Admission MELD- [facility] 16/UNOS 16 01/02/17: WBC 5.7, H/H 10.4/30.8 (after IVF), MCV 94.1, RDW 16.6, PLT 63; BUN/Cr 8/0.9, GFR > 60, Na 142, *K 3.1, HCO3 22, AG 8; Hep A Ab, Hep Bs Ag, Hep C Ab IgG, & Hep B core Ab IgM- all negative. 01/01/2017: EKG- NSR @ 65, normal axis, borderline prolonged QT interval, early transition, NSST flattening. 01/01/17: XR PORTABLE CHEST- No acute pulmonary process. Allergies/Medications Allergies: Coded Allergies: No Known Allergies (12/13/15) Home Med List: Folic Acid 0.4 MG TABLET 1 TAB PO DAILY VITAMIN SUPPORT Furosemide (Lasix) 20 MG TABLET 1 TAB PO DAILY cirrhosis Lactulose 10 GM/15 ML SOLUTION 45 ML PO TID cirrhosis Potassium Chloride (K-Tab ER) 10 MEQ TABLET.ER 1 TAB PO DAILY supplement Propranolol HCl 20 MG TABLET 1 TAB PO BID UNKNOWN (Reported) Rifaximin (Xifaxan) 550 MG TABLET 1 TAB PO BID cirrhosis Spironolactone 100 MG TABLET 1 TAB PO BID DIURETIC (Reported) Current Medications: Current Medications Sig/Memo Start time Last Medication Dose Route Stop Time Status Admin Furosemide 20 MG DAILY 01/02 1000 AC 01/02 PO 0956 Lactulose 10 GM TID 01/02 0015 AC 01/02 PO 2141 Magnesium Oxide 400 MG ONE ONE 01/02 0100 DC PO 01/02 0101 Potassium Chloride 10 MEQ DAILY 01/02 1000 AC 01/02 PO 0956 Potassium Chloride 40 MEQ ONCE ONE 01/02 0415 DC 01/02 PO 01/02 0416 0526 Potassium Chloride 0 .STK-MED ONE 01/02 0050 DC PO Potassium Chloride 60 MEQ ONCE ONE 01/01 2345 DC 01/02 PO 01/01 2346 0049 Potassium Chloride 40 MEQ Q13H 01/01 2345 AC 01/02 Dextrose/Sodium 1,000 ML IV 2138 Chloride Propranolol HCl 20 MG BID 01/02 1000 AC 01/02 PO 2149 Rifaximin 550 MG BID 01/02 1000 AC 01/02 PO 2140 Spironolactone 100 MG BID 01/02 1000 AC 01/02 PO 2149 Past History Travel History Traveled to [place] past 21 day No Medical History Blood Transfusion Hx: No Neurological: 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 EENT: NONE Cardiovascular: NONE Respiratory: NONE Gastrointestinal: esophageal varices duodenal ulcer Hepatic: cholelithiasis (GB intact), cirrhosis (alcoholic), hepatic encephalopathy Renal: NONE Musculoskeletal: degen joint disease (left shoulder) Psychiatric: alcohol dependence, substance abuse (in past- snorted crack cocaine ) Endocrine: NONE Blood Disorders: anemia, coagulopathy, thrombocytopenia (cirrhotic) Cancer(s): NONE KETTLE GIRL/Reproductive: NONE Surgical History Surgical History: hernia repair-umbilical, TIPS- "occluded", f/b [facility] Family History Relations & Conditions If Any: MOTHER, , Age 80; Cause: Diabetes. FATHER ([employer]; hx ? EtOH pancreatitis). Age 80. Psychosocial History Where Do You Live? Home Who Do You Live With? spouse (dtrYue), child Services at Home: None Primary Language: Greek Smoking Status: Current Everyday Smoker (3 cigs daily; 15 pk yr) ETOH Use: alcoholic Illicit Drug Use: denies illicit drug use (remote crack cocaine, no IVDA) Living Will? no Power of Academic Interventionist/HCP? no Other Social History: . Lives with Yue starkey. 1 son & 2 dtrs- [employer]. EtOH abuse "few beers daily" (vague- previously more). No IVDA. Previously snorted crack cocaine "a few years ago". Old tattoos. 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 Functional Ability ADLs Independent: dressing, eating, toileting, bathing. Ambulation: independent IADLs Independent: shopping, housework, finances, food prep, telephone, medication admin. Needs Assist: transportation. Employment History Employment: Retired Profession/Employer: [employer] Review of Systems Review of Systems: Full 14 point ROS otherwise noncontributory, & as above. Review of Systems Constitutional: Denies: chills, diaphoresis, fever, malaise, weakness, unexplained weight loss. EENTM: Denies: blurred vision, double vision, visual changes, eye pain, eye drainage, eye tearing, icterus, ear discharge, ear pain, ear redness, hearing changes, nasal congestion, epistaxis, nasal pain, throat pain, throat swelling, mouth pain, tooth pain. Cardiovascular: Denies: chest pain, edema, orthopena, palpitations, peripheral edema, syncope. Respiratory: Denies: cough, hemoptysis, orthopnea, short of breath, sputum production, stridor, wheezing. GI: Denies: abdominal pain, bloating, constipation, diarrhea, distention, bowel incontinence, melena, nausea, bloody stool, changes in stool, vomiting, steatorrhea. Genitourinary: Denies: discharge, dysuria, frequency, hematuria, hesitation, nocturia, pain, urgency. Musculoskeletal: Reports: joint pain (left shoulder- DJD). Denies: back pain, gout, joint swelling, muscle pain, muscle stiffness, neck pain. Skin: Denies: cysts, change in skin color, change in hair/nails, dryness, erythema, jaundice, lesions, lymphangitis, lumps, moles, rash. Neurological/Psychological: Reports: confusion (resolved), tremors (minimal). Denies: anxiety, ataxia, cognitive dysfunction, depressed, dementia, emotional problems, headache, numbness, paresthesia, pre-existing deficit, petit mal seizures, tingling, tonic -clonic seizures, unable to move lower ext, unable to move upper ext, weakness. Hematologic/Endocrine: Denies: bruising, bleeding, polyuria, polydipsia. Immunologic/Allergic: Denies: splenectomy, HIV/AIDS, lymphadenopathy. All Other Systems: Reviewed and Negative Exam & Diagnostic Data Vital Signs and I&O Vital Signs Date Time Temp Pulse Resp B/P B/P Pulse O2 O2 Flow FiO2 Mean Ox Delivery Rate 01/02 1600 97.0 29 20 120/60 01/02 1433 97.0 81 20 120/60 98 Room Air 01/02 0956 20/68 01/02 0625 98.1 62 20 120/60 96 Room Air 01/02 0600 98.1 62 20 120/60 01/02 0210 97.1 51 18 102/60 97 Room Air 01/02 0200 97.1 51 18 102/60 01/02 0111 97.8 58 18 104/57 98 Room Air 01/01 2333 96.6 63 20 103/58 100 Room Air Intake & Output 01/02 1600 01/02 0400 01/01 1600 01/01 0400 12/31 1600 12/31 0400 Intake Total 1840 1200 Output Total 250 Balance 1590 1200 Intake, IV 900 1200 Intake, Oral 940 Number 1 Bowel Movements Output, Urine 250 Patient 150 lb Weight Weight Reported by Patient Measurement Method Physical Exam: Well-developed, thin, slightly malnourished, pleasant male, in no apparent distress. Sclera muddy, but anicteric. Conjunctiva pink. Oropharynx clear. Edentulous. No oral thrush. No aphthous ulcers. Neck supple. There is no adenopathy, thyromegaly, or JVD. No peripheral stigmata of inflammatory bowel disease on exam. Positive spiders on the anterior chest wall. Positive gynecomastia B/L, without any masses or D/C. No CVA tenderness. Lungs: clear to A&P. Heart exam: regular rate rhythm, S1 and S2, without any murmur. Abdominal exam: normal bowel sounds, soft belly, mildly distended, nontender, without guarding or rebound. Umbilical scar. No palpable hernia. No mass. Liver approximately 13 cm by percussion. Negative Chiu sign. Barely palpable spleen tip. No definite fluid shift. No pulsatile mass. No epigastric bruit. Digital rectal exam: refused by patient. Extremities: without C, C, or E. No palpable cords. + Tattoos. Mild DJD. No palmar erythema. No Dupuytren's contractures. Distal pulses 1+ bilaterally. DTRs 1+ bilaterally. Right handed. CN II-XII intact. Currently, alert and oriented x 3. Minimal tremor. Positive asterixis. Results Pertinent Lab Results: Laboratory Tests 01/02 01/02 01/01 0610 0320 2250 Chemistry Sodium (137 - 145 mmol/L) 142 Potassium (3.5 - 5.1 mmol/L) 3.1 L 2.9 *L 2.5 *L Chloride (98 - 107 mmol/L) 113 H Carbon Dioxide (22 - 30 mmol/L) 22 Anion Gap (5 - 16) 8 BUN (9 - 20 mg/dL) 8 L Creatinine (0.7 - 1.2 mg/dL) 0.9 Estimated GFR (>60 ml/min) > 60 BUN/Creatinine Ratio (7 - 25 %) 8.9 Phosphorus (2.5 - 4.5 mg/dL) 2.6 Magnesium (1.6 - 2.3 mg/dL) 1.6 Hematology CBC w Diff NO MAN DIFF REQ WBC (4.8 - 10.8 /CUMM) 5.7 RBC (4.70 - 6.10 /CUMM) 3.27 L Hgb (14.0 - 18.0 G/DL) 10.4 L Hct (42 - 52 %) 30.8 L MCV (80.0 - 94.0 FL) 94.1 H MCH (27.0 - 31.0 PG) 31.8 H RDW (11.5 - 14.5 %) 16.6 H Plt Count (130 - 400 /CUMM) 63 L MPV (7.4 - 10.4 FL) 10.1 Gran % (42.2 - 75.2 %) 57.9 Lymphocytes % (20.5 - 51.1 %) 19.8 L Monocytes % (1.7 - 9.3 %) 19.9 H Eosinophils % (0 - 5 %) 1.7 Basophils % (0.0 - 2.0 %) 0.7 Absolute Granulocytes (1.4 - 6.5 /CUMM) 3.3 Absolute Lymphocytes (1.2 - 3.4 /CUMM) 1.1 L Absolute Monocytes (0.10 - 0.60 /CUMM) 1.1 H Absolute Eosinophils (0.0 - 0.7 /CUMM) 0.1 Absolute Basophils (0.0 - 0.2 /CUMM) 0 PUBS MCHC (33.0 - 37.0 G/DL) 33.8 Serology Hepatitis A IgM Ab (NONREACTIVE) NONREACTIVE Hep Bs Antigen (NONREACTIVE) NONREACTIVE Hep B Core IgM Ab Conf (NONREACTIVE) NONREACTIVE Hepatitis C Antibody (NONREACTIVE) NONREACTIVE 01/01 01/01 2117 2114 Chemistry Lactic Acid Cancelled Toxicology Urine Opiates Screen (>2000 NG/ML) < 100.00 Methadone Screen (>300 NG/ML) < 40 Barbiturate Screen (>200 NG/ML) < 60 Ur Phencyclidine Scrn (>25 NG/ML) < 6.00 Amphetamines Screen (>1000 NG/ML) < 100 U Benzodiazepines Scrn (>200 NG/ML) < 85 Urine Cocaine Screen (>300 NG/ML) < 50 Urine Cannabis Screen (>50 NG/ML) < 5.00 Urines Urine Color (YEL,AMB,STR) YEL Urine Clarity (CLEAR) CLEAR Urine pH (5.0 - 8.0) 7.0 Ur Specific [place] (1.001 - 1.035) 1.010 Urine Protein (NEG,<30 MG/DL) NEG Urine Ketones (NEG) NEG Urine Nitrite (NEG) NEG Urine Bilirubin (NEG) NEG Urine Urobilinogen (0.1 - 1.0 EU/dl) 1.0 Ur Leukocyte Esterase (NEG) TRACE H Ur Microscopic SEDIMENT EXAMINED Urine WBC (0 - 2 /HPF) 1-3 H Ur Epithelial Cells (NONE,FEW) FEW Urine Bacteria (NEG/NONE) MANY H Urine Hemoglobin (NEG) NEG Urine Glucose (N MG/DL) NEG 01/01 1827 Chemistry Sodium (137 - 145 mmol/L) 141 Potassium (3.5 - 5.1 mmol/L) 2.2 *L Chloride (98 - 107 mmol/L) 105 Carbon Dioxide (22 - 30 mmol/L) 24 Anion Gap (5 - 16) 12 BUN (9 - 20 mg/dL) 8 L Creatinine (0.7 - 1.2 mg/dL) 1.0 Estimated GFR (>60 ml/min) > 60 BUN/Creatinine Ratio (7 - 25 %) 8.0 Glucose (65 - 99 mg/dL) 123 H Lactic Acid (0.7 - 2.1 mmol/L) 1.8 Calcium (8.4 - 10.2 mg/dL) 8.2 L Total Bilirubin (0.2 - 1.3 mg/dL) 2.9 H AST (17 - 59 U/L) 36 ALT (21 - 72 U/L) 39 Alkaline Phosphatase (< 127 U/L) 144 H Ammonia (9 - 30 umol/L) 212 H Troponin I (<0.11 ng/ml) < 0.01 Total Protein (6.3 - 8.2 g/dL) 7.1 Albumin (3.5 - 5.0 g/dL) 3.1 L Globulin (1.9 - 4.2 gm/dL) 4.0 Albumin/Globulin Ratio (1.1 - 2.2 %) 0.8 L Coagulation PT (9.4 - 12.5 SEC) 16.5 H INR (0.90 - 1.17) 1.58 H APTT (25 - 37 SEC) 43 H Hematology CBC w Diff NO MAN DIFF REQ WBC (4.8 - 10.8 /CUMM) 6.2 RBC (4.70 - 6.10 /CUMM) 3.52 L Hgb (14.0 - 18.0 G/DL) 11.1 L Hct (42 - 52 %) 33.0 L MCV (80.0 - 94.0 FL) 93.6 MCH (27.0 - 31.0 PG) 31.6 H RDW (11.5 - 14.5 %) 16.9 H Plt Count (130 - 400 /CUMM) 86 L MPV (7.4 - 10.4 FL) 9.7 Gran % (42.2 - 75.2 %) 56.7 Lymphocytes % (20.5 - 51.1 %) 20.5 Monocytes % (1.7 - 9.3 %) 19.0 H Eosinophils % (0 - 5 %) 2.7 Basophils % (0.0 - 2.0 %) 1.1 Absolute Granulocytes (1.4 - 6.5 /CUMM) 3.5 Absolute Lymphocytes (1.2 - 3.4 /CUMM) 1.3 Absolute Monocytes (0.10 - 0.60 /CUMM) 1.2 H Absolute Eosinophils (0.0 - 0.7 /CUMM) 0.2 Absolute Basophils (0.0 - 0.2 /CUMM) 0.1 PUBS MCHC (33.0 - 37.0 G/DL) 33.7 Toxicology Serum Alcohol (<10 MG/DL) < 10.0 Imaging/Other Studies: 01/01/2017: EKG- NSR @ 65, normal axis, borderline prolonged QT interval, early transition, NSST flattening. 01/01/17: XR PORTABLE CHEST- No acute pulmonary process. Assessment/Plan Assessment/Recommendations: 61 y/o [place] male, history of alcoholic cirrhosis, followed at the [facility] liver unit, by Dr. Champagne & most recently, by Dr. Nicky Delcid. He contacts her periodically for paracentesis, when his abdomen gets distended. He previously went for quite some time between visits at the [facility], but currently claims to be compliant. In fact, he stated that he had an abdominal ultrasound done there about a month ago, results unknown. He has no PMD. He has a history of alcohol and drug abuse. He denied any IVDA. He claimed he last snorted crack cocaine a few years ago. He is a 15 pk yr cigarette smoker. 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 The patient had TIPS at [facility] years ago, I believe for refractory ascites, as well as for large varices. His TIPS were downsized due to PSE, in the setting of ongoing EtOH abuse, & the TIPS reportedly occluded. He previously had been noncompliant with his medications, which included Inderal 20 mg BID, Lactulose 30g TID, Rifaximin 550 mg BID, Lasix 20 mg daily, Aldactone 100 mg BID, Folate 0.4 mg daily, & KCl 10 meq daily, although he claimed he was now taking them (? validity, as he cannot recall their names). He has periods of intermittent confusion and lethargy. Has a known history of cholelithiasis, with an intact GB. He claimed his only abdominal surgery was for an umbilical hernia repair. He moved in with his daughter, Yue Leggett, in 2014. She noticed he was confused, and called EMS, who brought the patient to the [place] ER, where he arrived 01/01/17, at 6:08 p.m. Upon presentation, BP 115/65, P 70, R 18, T 99.2, O2 sat RA 98%. The patient felt confused on presentation. He was A & O x 2 (not to time). He admitted to still drinking about 2 beers a day, but denied any alcohol intake on the day of admission. The patient received IV NS bolus x 1L, along with KCl, Lactulose, & KCl in the ER. He was found to be markedly hypoK+ on admission, with K+ 2.2 (*see labs). His mentation is much improved at the time of my GI consult, & he is currently A & Ox3. He denied any history of overt GI bleeding, SBP, HRS or HPS, although records state he remotely had a duodenal ulcer, in addition to esophageal varices. He claimed he has been HIV negative in the past. He denied any history of viral hepatitis. He does have tattoos. He denied any blood transfusions. He denied using any aspirin, NSAIDs, sedative hypnotics, or recent illicit drugs. He denied any abdominal pain, GI, vomiting, GERD, odynophagia, dysphagia, early satiety, diarrhea, constipation, obstipation, tenesmus, rectal bleeding, or melena. He denied any fevers, chills, jaundice, dark urine, light stool, or pruritus. His appetite is fair. He denied any significant weight loss. He denied any recent increased abdominal girth or peripheral edema. He claimed he has not had an abdominal tap for quite some time. He has had EGD at [facility], unsure as to when last done. He admits he has not been compliant with a baseline screening colonoscopy, which had been advised by [facility]. There is no family history of GI Ca, GI disease, or inherited liver disease. It sounds like the patient's father had alcoholic pancreatitis. He denied any history of alcohol related seizures. He does have a history of alcohol withdrawal and DTs. His CIWA have been running around 2. He denied any recent head trauma. He denies any symptoms of UTI or URI. There was no chest pain or shortness of breath. He denied any rashes. He denies any arthralgias, except for DJD in the left shoulder. 01/01/17: Admission chest x-ray was unremarkable. He was last admitted to [facility] 12/13/2015 - 12/18/2015 with hepatic encephalopathy, felt to be from a combination of noncompliance with the above medications, hypokalemia, and E. Coli UTI, treated with Cipro. He had small to moderate ascites then, but as he improved clinically, his abdomen was not tapped then. 12/30/14: B12 893, folate 17.5, HgA1C 4.5 *As of 01/02/17, the patient's inpatient medications include Inderal 20 mg po BID, Aldactone 100 mg po BID, Rifaximin 550 mg po BID, KCl 10 meq daily, Lasix 20 mg daily, Lactulose 10g po TID & IVF: D5 1/2NS with 40 meq KCl/L @ 75 cc/hr. His mentation has improved since admission, as per his RN. No cultures have been sent this admission. He is tolerating solids and is ambulating with assistance. 01/01/17: Admission labs- WBC 6.2, H/H 11.1/33, MCV 93.6, RDW 16.9, PLT 86; glucose 123, BUN/Cr 8/1.0, GFR > 60, Na 141, *K 2.2, HCO3 24, AG 12, lactate 1.8 , Ca 8.2, Mg 1.6, PO4 2.6, albumin 3.1, globulin 4.0, TBil 2.9 (without fractionation), alk phos 144, AST 36, ALT 39, *NH3 212, troponin < 0.01, [EtOH] < 10, PT 16.5, INR 1.58, PTT 43; U/A- clear yellow, 1.010, 7.0, 1-3 WBC, many bact, few eptih, micro- otherwise neg, neg nitrite, tr esterase; *Utox - neg. 01/01/17: *Admission MELD- [facility] 16/UNOS 16 01/02/17: WBC 5.7, H/H 10.4/30.8 (after IVF), MCV 94.1, RDW 16.6, PLT 63; BUN/Cr 8/0.9, GFR > 60, Na 142, *K 3.1, HCO3 22, AG 8; Hep A Ab, Hep Bs Ag, Hep C Ab IgG, & Hep B core Ab IgM- all negative. 01/01/2017: EKG- NSR @ 65, normal axis, borderline prolonged QT interval, early transition, NSST flattening. 01/01/17: XR PORTABLE CHEST- No acute pulmonary process. *The patient has presumed alcoholic cirrhosis (*admission MELD 16), followed by Dr. Delcid, at [facility]. He has a past history of ascites and history of esophageal varices. The fact that his remote TIPS occluded should make PSE less likely to occur. The patient is afebrile and there is no leukocytosis to suggest sepsis. There is no definite fluid shift on exam to suggest SBP, and his chest x-ray is clear. *The most likely etiology of his PSE was the profound hypoK+ on admission (being repleted), which is a common precipitant of this, as it affects ATP production. Another possible etiology is noncompliance with his outpatient medications, especially Lactulose and Rifaximin The ongoing alcohol use is contributory. He denied any sedative hypnotics or recent illicit drug use. Utox was negative. There is no active UGI bleeding or melena to account for the elevated NH3 level (the patient refused a digital rectal exam). He is currently A & Ox3, and apparently his mental status is much better, compared to admission. He has some mild asterixis. His CIWA is stable at 2. *SUGGEST: Continue to replete potassium (watch levels on diuretics). 2g Na+ diet. I do not feel there is any need to restrict protein at present, as the patient is mildly catabolic. Nutritional supplements. Mobilize patient with assistance. Continue Inderal 20 mg po BID (for variceal prophylaxis), Aldactone 100 mg po BID, Rifaximin 550 mg po BID, KCl 10 meq daily, Lasix 20 mg daily, Lactulose 10g po TID & IVF: D5 1/2NS with 40 meq KCl/L @ 75 cc/hr. Consider checking HIV, TFTs with TSH, Fe, TIBC, ferritin, B12, & RBC folate. Guaiac stools. If the patient's recent abdominal sono results are not available from [facility], consider repeating this is an inpatient, to see if there is any significant ascites to tap. He should avoid hepatotoxins, avoid NSAIDs, & keep Tylenol use to < 2g daily. He should have an annual flu shot and Pneumovax, if applicable. If his Hep BsAb is negative, he should be vaccinated against both Hepatitis A & B. Advised psychiatric and social work input. Alcohol cessation was stressed. Discontinue cigarettes. *Otherwise, the patient should follow-up with Dr. Delcid, of the [facility] liver unit after discharge, for hepatoma surveillance, with serial AFP & RUQ sono Q 6 months. I will leave follow-up EGD regarding esophageal variceal surveillance to [facility]. The patient is aware of the need for a baseline screening colonoscopy, which was advised by [facility]. I will leave other potential causes of cirrhosis- (i.e. AIH, doubt PBC, etc.), to the [facility] liver unit. *As the patient seems much improved on his current regimen, further inpatient GI follow up will be on an as-needed basis. Please call if needed. Problem List: 1. Alcoholic cirrhosis of liver 2. Hepatic encephalopathy 3. Anemia 4. Thrombocytopenia 5. Coagulopathy 6. Hypokalemia 7. Alcohol withdrawal 8. Cholelithiasis Copies To: ELIANE RANDALL,RONNA CLARK; DRISS RANDALL,ANNI Consult Acknowledgment - Thank you for your consult request.
--- NOTE | 2017-01-02 21:51 | NUR ---
PT'S BP 102/70, P 62. PER [facility] IMGE QUOC, OKAY TO GIVE ORDERED ALDACTONE AND INDERAL.
--- NOTE | 2017-01-02 23:31 | NUR ---
SHIFT NOTE 7P-11P. PT IS AOX3 AT THIS TIME. OOB WITH RW AND 1 ASSIST, CALLS APPROPRIATELY, FALL PRECAUTIONS IN PLACE. DENIES ANY PAIN. D5 1/2NS W/ 40MEQ KCL INFUSING INTO #20 IV IN LF. ABDOMEN SOFT AND SLIGHTLY DISTENDED.
[2017-01-03] VITALS: BP 102/70
[2017-01-03 06:00] VITALS: BP 92/60
--- NOTE | 2017-01-03 06:15 | NUR ---
PT BP 92/60, ASYMPTOMATIC, MD BIMAL KUMARI MADE AWARE, PER MD BP IS OKAY. WILL MONITOR.
--- NOTE | 2017-01-03 06:37 | PN- Housestaff ---
See Addendum Subjective Follow-up For: Hepatic encephalopathy Electrolyte disturbances Subjective: Patient seen and examined this morning. Resting comfortably in bed with no acute complaints. He is awake, alert and oriented x 3 this morning. Denies any fever, chills, chest discomfort, palpitations, abdominal pain, nausea, vomiting, headache. He moved his bowels this morning. No events reported overnight. Review of Systems Constitutional: Reports: see HPI. Objective Last 24 Hrs of Vital Signs/I&O Vital Signs Date Time Temp Pulse Resp B/P B/P Pulse O2 O2 Flow FiO2 Mean Ox Delivery Rate 01/03 1011 62 106/6 01/03 0638 98.5 62 20 92/60 99 Room Air 01/03 0600 92/60 01/03 0000 97.7 62 18 102/70 01/02 2211 97.7 62 18 102/70 99 /11 2149 62 102/70 01/02 1600 97.0 29 20 120/60 11 1433 97.0 81 20 120/60 98 Room Air Intake & Output 01/03 1600 12 0800 01/03 0000 Intake Total 800 1050 Output Total 300 550 Balance 500 500 Intake, IV 600 600 Intake, Oral 200 450 Number 1 Bowel Movements Output, Urine 300 550 Patient 68.209 kg Weight Physical Exam General Appearance: Alert, Oriented X3, Cooperative, No Acute Distress Other Physical Findings: General Appearance Alert, No Acute Distress, Oriented to Person and Place, but Not Time, Confused Skin No Rashes Skin Temp/Moisture Exam: Warm/Dry HEENT Atraumatic, Mucous Membr. moist/pink, Scleral Icterus Neck Supple Cardiovascular Regular Rate, Normal S1, Normal S2, No Murmurs, Gallops, Rubs Lungs Clear to Auscultation Abdomen Soft, No Tenderness, Positive Bowel Sounds, Distended Neurological Asterixis Extremities No Clubbing, No Cyanosis, No Edema Breasts Bilateral gynecomastia Current Medications: Current Medications Sig/Memo Start time Last Medication Dose Route Stop Time Status Admin Furosemide 20 MG DAILY 01/02 1000 AC 01/03 PO 1011 Lactulose 10 GM TID 01/02 0015 AC 01/03 PO 1011 Phosphate 250 MG PC AND AT BEDTIME 01/03 1300 AC PO Potassium Chloride 10 MEQ DAILY 01/02 1000 AC 01/03 PO 1011 Potassium Chloride 40 MEQ Q13H 01/01 2345 AC 01/02 Dextrose/Sodium 1,000 ML IV 2138 Chloride Propranolol HCl 20 MG BID 01/02 1000 AC 01/03 PO 1011 Rifaximin 550 MG BID 01/02 1000 AC 01/03 PO 1011 Spironolactone 100 MG BID 01/02 1000 AC 01/03 PO 1011 Last 24 Hrs of Lab/Jacques Results Last 24 Hrs of Labs/Mics: Laboratory Tests 01/03/17 0616: Anion Gap 8, Estimated GFR > 60, BUN/Creatinine Ratio 6.7 L, Phosphorus 1.8 L, Magnesium 1.6, CBC w Diff NO MAN DIFF REQ, RBC 3.25 L, MCV 95.3 H, MCH 31.8 H , RDW 17.3 H, MPV 10.2, Gran % 62.0, Lymphocytes % 18.5 L, Monocytes % 15.7 H , Eosinophils % 3.2, Basophils % 0.6, Absolute Granulocytes 3.8, Absolute Lymphocytes 1.1 L, Absolute Monocytes 1.0 H, Absolute Eosinophils 0.2, Absolute Basophils 0, PUBS MCHC 33.4 Assessment/Plan Assessment: Mr. 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 #Hepatic encephalopathy: Patient's AMS in the setting of decompensated alcoholic cirrhosis is concerning for hepatic encephalopathy, likely precipitated by noncompliance with medications. Ammonia 212 on admission. Physical exam remarkable for asterixis or shifting dullness. Total bilirubin 2.9. INR 1.58 on admission. No evidence of infection. CXR clear. UA unremarkable. Sees fourth mate Dr. Delcid at [facility]. MELD score of 16 corresponding to estimated 3-month mortality of 6%. Has esophageal varices but no history of bleeding, SBP or hepatorenal syndrome. * GI following, appreciate recs * Continue home meds lactulose 10 mg PO TID titrating to 3 bowel movements per day and rifaximin 550 mg PO BID. * Continue home meds Lasix 20 mg PO daily and spironolactone 100 mg PO BID * Inderal 20 mg po BID and propranolol 20 mg PO daily for variceal prophylaxis, * Check hepatitis panel - negative * Abdominal U/S to assess for ascites and possible tap #Hypokalemia - resolved K 2.2 on initial presentation. No EKG changes associated with hypokalemia. * BEP daily * Continue KCl 10mEq daily * Currently on IVF D5 1/2NS with 40 meq KCl/L @ 75 cc/hr #Alcohol dependence: Admits to drinking 2 beers daily. Serum alcohol <10 on admission. * [facility] protocol to monitor for signs/symptoms of alcohol withdrawal. * Hold Ativan for now. Diet: Heart Healthy with 2 g Na restriction DVT PPx: ALPs CODE: FULL Problem List: 1. Hepatic encephalopathy 2. Hypokalemia 3. Altered mental status 4. Alcoholic liver disease 5. Patient is full code 6. DVT prophylaxis 7. Decompensated hepatic cirrhosis 8. Cholelithiasis Pain Ratin Pain Location: 0 Pain Goal: Remain pain free Pain Plan: Mild pathway Tomorrow's Labs & Rationales: BEP/Mg - hypokalemia, hypomagneisa
[2017-01-03 06:38] VITALS: BP 92/60
[2017-01-03 08:37] LABS: ABSOLUTE BASOPHIL COUNT 0 /CUMM (0.0-0.2); ABSOLUTE EOSINOPHIL COUNT 0.2 /CUMM (0.0-0.7); ABSOLUTE GRANULOCYTE CT 3.8 /CUMM (1.4-6.5); ABSOLUTE LYMPH COUNT 1.1 /CUMM (1.2-3.4); BASOPHIL % 0.6 % (0.0-2.0); EOSINOPHIL % 3.2 % (0-5); HEMATOCRIT 30.9 % (42-52); MEAN CORPUSCULAR HGB 31.8 PG (27.0-31.0); MEAN CORPUSCULAR HGB CONC 33.4 G/DL (33.0-37.0); MEAN CORPUSCULAR VOLUME 95.3 FL (80.0-94.0); MEAN PLATELET VOLUME 10.2 FL (7.4-10.4); PLATELET COUNT 63 /CUMM (130-400); RBC DISTRIBUTION WIDTH 17.3 % (11.5-14.5); RED BLOOD CELL CT 3.25 /CUMM (4.70-6.10); WHITE BLOOD CELL COUNT 6.2 /CUMM (4.8-10.8)
--- NOTE | 2017-01-03 10:09 | ULTRASOUND REPORT ---
EXAMINATION: US ABDOMEN LIMITED CLINICAL INFORMATION: Cirrhosis. Evaluate for ascites.. COMPARISON: Abdomen ultrasound from 12/14/2015. TECHNIQUE: Limited sonographic imaging of the upper and lower quadrants of the abdomen performed to evaluate for ascites. FINDINGS: Moderate amount of simple appearing ascitic fluid is seen within both upper and both lower quadrants. There is a sufficient volume of fluid for performance of paracentesis, if deemed clinically necessary. IMPRESSION: Moderate volume of ascites is present within the examined abdomen and pelvis.
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
[2017-01-03 14:26] VITALS: BP 112/60
[2017-01-03 21:38] VITALS: BP 98/56
[2017-01-04] VITALS (7 sets, daily range): BP systolic 98–114; BP diastolic 60–70
--- NOTE | 2017-01-04 06:17 | PN- Housestaff ---
See Addendum Subjective Follow-up For: Hepatic encephalopathy Ascites Electrolyte disturbances Subjective: Patient seen and examined this morning. No events reported overnight. Resting comfortably in bed with no acute complaints. Remains awake, alert and oriented x 3. He reports one episode of vomiting yest but feels fine right now. Denies any fever, chills, chest discomfort, palpitations, abdominal pain, headache. Tolerating PO intake and moving bowels. Review of Systems Constitutional: Reports: see HPI. Objective Last 24 Hrs of Vital Signs/I&O Vital Signs Date Time Temp Pulse Resp B/P B/P Pulse O2 O2 Flow FiO2 Mean Ox Delivery Rate 01/04 0603 98.8 60 20 110/60 97 Room Air 01/04 0600 98.8 60 20 110/60 01/04 0200 98.8 59 18 114/60 01/03 2146 99.5 66 16 98/56 01/03 2138 99.5 66 16 98/56 99 Room Air 01/03 1426 97.0 58 20 112/60 98 Room Air 01/03 1011 62 106/6 Intake & Output 01/04 0800 01/04 0000 01/03 1600 Intake Total 1005 1225 Output Total 100 300 Balance 905 925 Intake, IV 525 525 Intake, Oral 480 700 Number 6 Bowel Movements Output, 100 Emesis Output, Urine 300 Patient 68.209 kg Weight Physical Exam General Appearance: Alert, Oriented X3, Cooperative, No Acute Distress Other Physical Findings: Skin No Rashes Skin Temp/Moisture Exam: Warm/Dry HEENT Atraumatic, Mucous Membr. moist/pink, Scleral Icterus Neck Supple Cardiovascular Regular Rate, Normal S1, Normal S2, No Murmurs, Gallops, Rubs Lungs Clear to Auscultation Abdomen Soft, No Tenderness, Positive Bowel Sounds, Distended Neurological Asterixis Extremities No Clubbing, No Cyanosis, No Edema Breasts Bilateral gynecomastia Current Medications: Current Medications Sig/Memo Start time Last Medication Dose Route Stop Time Status Admin Furosemide 20 MG DAILY 01/02 1000 AC 01/03 PO 1011 Lactulose 10 GM TID 01/02 0015 AC 01/03 PO 2143 Magnesium Chloride 64 MG ONCE ONE 01/03 1430 DC 01/03 PO 01/03 1431 1609 Patient Medication 1 ED .STK-MED ONE 01/03 1406 RI Teaching ED 01/03 1407 Phosphate 250 MG PC AND AT BEDTIME 01/03 1300 AC 01/03 PO 2143 Potassium Chloride 10 MEQ DAILY 01/02 1000 AC 01/03 PO 1011 Potassium Chloride 40 MEQ Q13H 01/01 2345 DC 01/03 Dextrose/Sodium 1,000 ML IV 1151 Chloride Propranolol HCl 20 MG BID 01/02 1000 AC 01/03 PO 1011 Rifaximin 550 MG BID 01/02 1000 AC 01/03 PO 2143 Spironolactone 100 MG BID 01/02 1000 AC 01/03 PO 1011 Assessment/Plan Assessment: Mr. 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 #Hepatic encephalopathy: Patient's AMS in the setting of decompensated alcoholic cirrhosis is concerning for hepatic encephalopathy, likely precipitated by noncompliance with medications. Ammonia 212 on admission. Physical exam remarkable for asterixis or shifting dullness. Total bilirubin 2.9. INR 1.58 on admission. No evidence of infection. CXR clear. UA unremarkable. Sees nursery manager Dr. Delcid at [facility]. MELD score of 16 corresponding to estimated 3-month mortality of 6%. Has esophageal varices but no history of bleeding, SBP or hepatorenal syndrome. Hepatitis panel negative. * GI following, appreciate recs * Continue home meds lactulose 10 mg PO TID titrating to 3 bowel movements per day and rifaximin 550 mg PO BID. * Continue home meds Lasix 20 mg PO daily and spironolactone 100 mg PO BID * Inderal 20 mg po BID and propranolol 20 mg PO daily for variceal prophylaxis, * Abdominal U/S shows moderate fluid * Proceed with paracentesis today, follow diagnostic labs #Hypokalemia - resolved K 2.2 on initial presentation. No EKG changes associated with hypokalemia. Hypokalemia improved significantly with IVF D5 1/2NS with 40 meq KCl/L @ 75 cc/ hr, which was accordingly discontinued after normalization of K+. * Continue KCl 10mEq daily * Monitor BEP daily * Replete as needed #Alcohol dependence: Admits to drinking 2 beers daily. Serum alcohol <10 on admission. * CIWA protocol to monitor for signs/symptoms of alcohol withdrawal. * Hold scheduled Ativan for now. Diet: Heart Healthy with 2 g Na restriction DVT PPx: ALPs CODE: FULL Problem List: 1. Hepatic encephalopathy 2. Hypokalemia 3. Altered mental status 4. Alcoholic cirrhosis of liver 5. Alcohol withdrawal Pain Ratin Pain Location: 0 Pain Goal: Remain pain free Pain Plan: Mild Tomorrow's Labs & Rationales: CBC BEP
--- NOTE | 2017-01-04 08:16 | PN- Student ---
Subjective Subjective: 61 yo male with history of alcoholic cirrhosis presented with AMS and hypokalemia. This morning, he states bilateral shoulder pain and rates it as a 10/10. He also reports heartburn and had 1 episode of vomiting with no evidence of blood last night after eating. Patient reports medical noncompliance at home because he feels they cause him to be confused. Denies chest pain, abdominal pain, nausea, vomiting, fever, weakness, dyspnea, difficulty urinating. Current Medications Sig/Memo Start time Last Medication Dose Route Stop Time Status Admin Furosemide 20 MG DAILY 01/02 1000 AC 01/03 PO 1011 Lactulose 10 GM TID 01/02 0015 AC 01/03 PO 2143 Magnesium Chloride 64 MG ONCE ONE 01/03 1430 DC 01/03 PO 01/03 1431 1609 Patient Medication 1 ED .STK-MED ONE 01/03 1406 DC Teaching ED 01/03 1407 Phosphate 250 MG PC AND AT BEDTIME 01/03 1300 AC 01/03 PO 2143 Potassium Chloride 10 MEQ DAILY 01/02 1000 AC 01/03 PO 1011 Potassium Chloride 40 MEQ Q13H 01/01 2345 DC 01/03 Dextrose/Sodium 1,000 ML IV 1151 Chloride Propranolol HCl 20 MG BID 01/02 1000 AC 01/03 PO 1011 Rifaximin 550 MG BID 01/02 1000 AC 01/03 PO 2143 Spironolactone 100 MG BID 01/02 1000 AC 01/03 PO 1011 Objective Objective: Physical exam: General: alert and oriented x3. no acute distress HEENT: NC/AT. pupils dilated, nonreactive to light. mild scleral icterus Heart: regular rate and rhythm. no murmurs Lungs: clear to auscultation Abdomen: soft, nontender. distended. normoactive bowel sounds. no pain upon palpation Lymphatic: no lymphadenopathies Vital Signs Date Time Temp Pulse Resp B/P B/P Pulse O2 O2 Flow FiO2 Mean Ox Delivery Rate 01/04 0603 98.8 60 20 110/60 97 Room Air 01/04 0600 98.8 60 20 110/60 01/04 0200 98.8 59 18 114/60 01/03 2146 99.5 66 16 98/56 01/03 2138 99.5 66 16 98/56 99 Room Air 01/03 1426 97.0 58 20 112/60 98 Room Air 06/12 1011 62 106/6 Intake & Output 01/04 1600 01/04 0800 01/04 0000 Intake Total 1005 Output Total 100 Balance 905 Intake, IV 525 Intake, Oral 480 Output, 100 Emesis Abdominal U/S (01/03/17): Moderate volume of ascites is present within the examined abdomen and pelvis. Results Results: Laboratory Tests 01/04/17 0720: Sodium Pending, Potassium Pending, Chloride Pending, Carbon Dioxide Pending, Anion Gap Pending, BUN Pending, Creatinine Pending, BUN/Creatinine Ratio Pending , Phosphorus Pending, Magnesium Pending 01/03/17 0616: Anion Gap 8, Estimated GFR > 60, BUN/Creatinine Ratio 6.7 L, Phosphorus 1.8 L, Magnesium 1.6, CBC w Diff NO MAN DIFF REQ, RBC 3.25 L, MCV 95.3 H, MCH 31.8 H , RDW 17.3 H, MPV 10.2, Gran % 62.0, Lymphocytes % 18.5 L, Monocytes % 15.7 H , Eosinophils % 3.2, Basophils % 0.6, Absolute Granulocytes 3.8, Absolute Lymphocytes 1.1 L, Absolute Monocytes 1.0 H, Absolute Eosinophils 0.2, Absolute Basophils 0, PUBS MCHC 33.4 01/02/17 0610: Anion Gap 8, Estimated GFR > 60, BUN/Creatinine Ratio 8.9, CBC w Diff NO MAN DIFF REQ, RBC 3.27 L, MCV 94.1 H, MCH 31.8 H, RDW 16.6 H, MPV 10.1, Gran % 57.9, Lymphocytes % 19.8 L, Monocytes % 19.9 H, Eosinophils % 1.7, Basophils % 0.7, Absolute Granulocytes 3.3, Absolute Lymphocytes 1.1 L, Absolute Monocytes 1.1 H, Absolute Eosinophils 0.1, Absolute Basophils 0, PUBS MCHC 33.8, Hepatitis A IgM Ab NONREACTIVE, Hep Bs Antigen NONREACTIVE, Hep B Core IgM Ab Conf NONREACTIVE, Hepatitis C Antibody NONREACTIVE 01/02/17 0320: 01/01/17 2250: Phosphorus 2.6, Magnesium 1.6 01/01/177: Lactic Acid Cancelled 01/01/17 2114: Urine Opiates Screen < 100.00, Methadone Screen < 40, Barbiturate Screen < 60, Ur Phencyclidine Scrn < 6.00, Amphetamines Screen < 100, U Benzodiazepines Scrn < 85, Urine Cocaine Screen < 50, Urine Cannabis Screen < 5.00, Urine Color YEL, Urine Clarity CLEAR, Urine pH 7.0, Ur Specific [place] 1.010, Urine Protein NEG, Urine Ketones NEG, Urine Nitrite NEG, Urine Bilirubin NEG, Urine Urobilinogen 1.0, Ur Leukocyte Esterase TRACE H, Ur Microscopic SEDIMENT EXAMINED, Urine WBC 1-3 H, Ur Epithelial Cells FEW, Urine Bacteria MANY H, Urine Hemoglobin NEG, Urine Glucose NEG 01/01/17 1827: Anion Gap 12, Estimated GFR > 60, BUN/Creatinine Ratio 8.0, Glucose 123 H, Lactic Acid 1.8, Calcium 8.2 L, Iron 76, TIBC 298, Ferritin 48.7, Total Bilirubin 2.9 H, AST 36, ALT 39, Alkaline Phosphatase 144 H, Ammonia 212 H, Troponin I < 0.01, Total Protein 7.1, Albumin 3.1 L, Globulin 4.0, Albumin/ Globulin Ratio 0.8 L, Vitamin B12 807, Folate 9.7, TSH 0.631, Free T4 1.57, Total T3 0.90 L, PT 16.5 H, INR 1.58 H, APTT 43 H, CBC w Diff NO MAN DIFF REQ, RBC 3.52 L, MCV 93.6, MCH 31.6 H, RDW 16.9 H, MPV 9.7, Gran % 56.7, Lymphocytes % 20.5, Monocytes % 19.0 H, Eosinophils % 2.7, Basophils % 1.1, Absolute Granulocytes 3.5, Absolute Lymphocytes 1.3, Absolute Monocytes 1.2 H, Absolute Eosinophils 0.2, Absolute Basophils 0.1, PUBS MCHC 33.7, HIV 1&2 Ab Western Blot NONREACTIVE, Serum Alcohol < 10.0 Microbiology 01/05 800 BODY FLUID: Body Fluid Culture - COLB 01/05 800 BODY FLUID: Gram Stain - COLB Assessment/Plan Assessment: Assessment and Plan: 61 yo male with PMHx of alcoholic cirrhosis with refractory ascites presented for AMS and hypokalemia and diagnosed with hepatic encephalopathy. PE significant for scleral icterus and distended abdomen. Patient is afebrile, normotensive. Abdominal U/S showed moderal volume of ascites. 1. Hepatic encephalopathy * PMHx of alcoholic cirrhosis and presentation of AMS upon admission is likely due to hepatic encephalopathy as well as hypokalemia, noncompliance of medications, and continued consumption of alcohol. Hypokalemia has been resolved and patient had 6 BMs yesterday. Patient is also alert and oriented x3. * If patient were not improving and was febrile, abdomen U/S with paracentesis could be performed to evaluate ascitic fluid for WBC, RBC, glucose, protein, albumin, LDH, amylase and to r/o spontaneous bacterial peritonitis. If diagnosed , treat with 3rd generation cephalosporin. * Continue diuretics and restrict sodium and protein. * Monitor episodes of hemetemasis for variceal hemorrhage 2. Alcoholic cirrhosis * Continue home medications, with exception of decreasing frequency of Laculose to maintain 2-3 bowel movements/day. * History of medical noncompliance. Consider educating on importance of medications and obstaining from alcohol. * Consider livestock auctioneer consult. 3. Hypomagnesemia * Likely due to medications, such as diuretics. * Administer Mg2+ 4. Hypophosphatemia * Likely due to liver disease, vit D defiency * Administer phosphate 5. Alcohol dependence * Reveals he drinks 1-2 beers/day. States he doesn't have a good support system, including family and friends, and group therapy hasn't helped in the past. * Consider psych consult, social work
[2017-01-05] VITALS: BP 110/60
[2017-01-05 02:00] VITALS: BP 110/60
[2017-01-05 04:00] VITALS: BP 110/60
[2017-01-05 06:00] VITALS: BP 110/60
--- NOTE | 2017-01-05 06:13 | PN- Housestaff ---
Subjective Follow-up For: Hepatic encephalopathy Ascites Electrolyte disturbances Subjective: Patient seen and examined this morning. Resting comfortably in bed with no acute complaints. Sleepy but arousable. When woken up he is alert and oriented x 3. Denies any fever, chills, chest discomfort, palpitations, abdominal pain, n/v/c/ d, headache. Tolerating PO intake and moving bowels. Review of Systems Constitutional: Reports: see HPI. Objective Last 24 Hrs of Vital Signs/I&O Vital Signs Date Time Temp Pulse Resp B/P B/P Pulse O2 O2 Flow FiO2 Mean Ox Delivery Rate 01/05 0630 99.0 63 20 100/66 96 Room Air 01/05 0400 99.0 66 18 110/60 01/05 0200 99.0 66 18 110/60 01/05 0000 99.6 66 18 110/60 01/04 2302 99.6 66 20 110/60 98 Room Air 01/04 2203 100/70 01/04 2200 98.1 62 18 100/70 01/04 2000 98.1 62 18 98/60 01/04 1425 98.1 62 20 98/60 98 Room Air 01/04 0834 60 110/60 Intake & Output 01/05 0800 01/05 0000 01/04 1600 Intake Total 800 Output Total Balance 800 Intake, IV 200 Intake, Oral 600 Number 1 Bowel Movements Physical Exam General Appearance: Alert, Oriented X3, Cooperative, No Acute Distress Other Physical Findings: Skin No Rashes Skin Temp/Moisture Exam: Warm/Dry HEENT Atraumatic, Mucous Membr. moist/pink, Scleral Icterus Neck Supple Cardiovascular Regular Rate, Normal S1, Normal S2, No Murmurs, Gallops, Rubs Lungs Clear to Auscultation Abdomen Soft, No Tenderness, Positive Bowel Sounds, Distended Neurological Asterixis Extremities No Clubbing, No Cyanosis, No Edema Current Medications: Current Medications Sig/Memo Start time Last Medication Dose Route Stop Time Status Admin Furosemide 20 MG DAILY 01/02 1000 AC 01/04 PO 0834 Lactulose 10 GM BID 01/04 2200 AC 01/04 PO 2203 Lactulose 10 GM TID 01/02 0015 DC 01/04 PO 0834 Magnesium Chloride 64 MG DAILY 01/04 1000 AC 01/04 PO 1342 Magnesium Sulfate 1 GM Q2H 01/04 0930 DC 01/04 Dextrose/Water 100 ML IV 01/04 1329 1342 Phosphate 250 MG PC AND AT BEDTIME 01/03 1300 AC 01/04 PO 2204 Potassium Chloride 20 MEQ ONCE ONE 01/04 0930 DC 01/04 PO 01/04 0931 1143 Potassium Chloride 10 MEQ DAILY 01/02 1000 AC 01/04 PO 0834 Propranolol HCl 20 MG BID 01/02 1000 AC 01/04 PO 2203 Rifaximin 550 MG BID 01/02 1000 AC 01/04 PO 2202 Spironolactone 100 MG BID 01/02 1000 AC 01/04 PO 2203 Last 24 Hrs of Lab/Jacques Results Last 24 Hrs of Labs/Mics: Laboratory Tests 01/04/17 0800: Fluid WBC Cancelled, Fld Total RBCs Counted Cancelled 01/04/17 0800: Fluid Glucose Cancelled, Fluid Total Protein Cancelled, Fluid Albumin Cancelled, Fluid LDH Cancelled, Fluid Amylase Cancelled 01/04/17 0720: Anion Gap 8, Estimated GFR > 60, BUN/Creatinine Ratio 5.6 L, Phosphorus 2.0 L, Magnesium 1.4 L Microbiology 01/05 800 BODY FLUID: Body Fluid Culture - COLB 01/05 800 BODY FLUID: Gram Stain - COLB Assessment/Plan Assessment: Mr. 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 #Hepatic encephalopathy: Patient's AMS in the setting of decompensated alcoholic cirrhosis is concerning for hepatic encephalopathy, likely precipitated by noncompliance with medications. Ammonia 212 on admission. Physical exam remarkable for asterixis or shifting dullness. Total bilirubin 2.9. INR 1.58 on admission. No evidence of infection. CXR clear. UA unremarkable. Sees furniture dipper Dr. Delcid at [facility]. MELD score of 16 corresponding to estimated 3-month mortality of 6%. Has esophageal varices but no history of bleeding, SBP or hepatorenal syndrome. Hepatitis panel negative. Abdominal U/S showed moderate fluid but we're holding off parecentesis given his clinical improvement. * GI following, appreciate recs * Continue lactulose 10 mg PO BID titrating to 3 BMs/day and rifaximin 550 mg PO BID. * Continue home meds Lasix 20 mg PO daily and spironolactone 100 mg PO BID * Cont propranolol 20 mg PO BID for variceal prophylaxis, #Hypokalemia - resolved K 2.2 on initial presentation. No EKG changes associated with hypokalemia. Hypokalemia improved significantly with IVF D5 1/2NS with 40 meq KCl/L @ 75 cc/ hr, which was accordingly discontinued after normalization of K+. * Continue KCl 10mEq daily * Monitor BEP daily * Replete as needed #Alcohol dependence: Admits to drinking 2 beers daily. Serum alcohol <10 on admission. * [facility] protocol to monitor for signs/symptoms of alcohol withdrawal. * Hold scheduled [facility] for now. Diet: Heart Healthy with 2 g Na restriction DVT PPx: ALPs CODE: FULL Problem List: 1. Hepatic encephalopathy 2. Alcoholic liver disease Pain Ratin Pain Location: 0 Pain Goal: Remain pain free Pain Plan: Mild Tomorrow's Labs & Rationales: None None
[2017-01-05 06:30] VITALS: BP 100/66
[2017-01-05 09:14] VITALS: BP 100/66
--- NOTE | 2017-01-05 09:14 | Patient Discharge Instructions ---
Discharge Instructions General Discharge Information You were seen/treated for: Hepatic encephalopathy Special Instructions: Please follow up with your primary care doctor and liver doctor (Dr. Mendoza) within 1-2 weeks of discharge. Please take the medications as instructed. Please restrain from drinking alcohol. Diet Continue normal diet: Yes Recommended Diet: Heart Healthy Activity Full Activity/No Limits: Yes (as tolerated) Acute Coronary Syndrome Inclusion Criteria At DC or during hospital stay patient has or had the following: ACS DIAGNOSIS No Discharge Core Measures Meds if any: Prescribed or Continued at Discharge Meds if any: NOT Prescribed or Continued at Discharge Congestive Heart Failure Inclusion Criteria At DC or during hospital stay patient has or had the following: CHF DIAGNOSIS No Discharge Core Measures Meds if any: Prescribed or Continued at Discharge Meds if any: NOT Prescribed or Continued at Discharge Cerebrovascular accident Inclusion Criteria At DC or during hospital stay patient has or had the following: CVA/TIA Diagnosis No Discharge Core Measures Meds if any: Prescribed or Continued at Discharge Meds if any: NOT Prescribed or Continued at Discharge Venous thromboembolism Inclusion Criteria VTE Diagnosis No VTE Type NONE VTE Confirmed by (Test) NONE Discharge Core Measures - Per Current guidelines, there needs to be overlap - treatment for the first 5 days of Warfarin therapy. - If discharged on Warfarin prior to 5 days of - overlap therapy, the patient will need to be - assessed for post discharge needs including - *Post discharge parental anticoagulation - *Warfarin and/or parental anticoagulation education - *Follow up date to check INR post discharge At least 5 days overlap therapy as Inpatient No Meds if any: Prescribed or Continued at Discharge Note: Overlap Therapy is Warfarin and Anticoagulant Meds if any: NOT Prescribed or Continued at Discharge
[2017-01-05] MEDS ORDERED: ZOFRAN4 M2 PO (10:21)
--- NOTE | 2017-01-05 11:22 | NUR ---
ADMINISTERED PT AM MEDICATION, PT VOMITED X1, 200ML OF EMESIS, PT REQUESTED ANTI-NAUSEA MEDICATION BUT THEN DECLINED, MD RODRIGUEZ AWARE.
--- NOTE | 2017-01-05 13:35 | Discharge Summary ---
Visit Information Visit Dates Admission Date: 01/01/17 Discharge Date: 01/05/17 Hospital Course Course Attending Physician: LADI MOYER MD Primary Care Physician: PATIENT HAS NO PRIMARY CARE DR Hospital Course: Mr. 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 # Hepatic encephalopathy: Patient's AMS in the setting of decompensated alcoholic cirrhosis was concerning for hepatic encephalopathy, likely precipitated by noncompliance with medications. Ammonia 212 on admission. Physical exam remarkable for asterixis or shifting dullness. Total bilirubin 2.9. INR 1.58 on admission. No evidence of infection. CXR clear. UA unremarkable. Sees type copyist Dr. Delcid at [facility]. MELD score of 16 corresponding to estimated 3-month mortality of 6%. Has esophageal varices but no history of bleeding, SBP or hepatorenal syndrome. Hepatitis panel negative. Patient was resumed on home meds lactulose 10 mg PO BID, rifaximin 550 mg PO BID, Lasix 20 mg PO daily,spironolactone 100 mg PO BID, and propranolol 20 mg PO BID. Patient improved significantly as a result. Abdominal U/S showed moderate fluid but we held off parecentesis given his clinical improvement. #Hypokalemia - resolved K 2.2 on initial presentation. No EKG changes associated with hypokalemia. Hypokalemia improved significantly with IVF D5 1/2NS with 40 meq KCl/L @ 75 cc/ hr, which was accordingly discontinued after normalization of K+. Diet: Heart Healthy with 2 g Na restriction DVT PPx: ALPs CODE: FULL Allergies: Coded Allergies: No Known Allergies (12/13/15) Disposition Summary Disposition Principal Diagnosis: Hepatic encephalopathy Additional Diagnosis: Hypokalemia Discharge Disposition: home health services Discharge Instructions General Discharge Information Code Status: Full Code Patient's Diet: Low sodium diet Patient's Activity: As tolerated Follow-Up Instructions/Appts: Please follow up with your primary care doctor and liver doctor (Dr. Mendoza) within 1-2 weeks of discharge. Please take the medications as instructed. Please restrain from drinking alcohol. Medications at Discharge Discharge Medications: Continue taking these medications: Potassium Chloride (K-Tab ER) 10 MEQ TABLET.ER 1 Tablet ORAL DAILY Days = 28 Comments: LAST TAKEN 01/05 9:15 AM Furosemide (Lasix) 20 MG TABLET 1 Tablet ORAL DAILY Days = 30 Comments: LAST TAKEN 01/05 0915 AM Folic Acid (Folic Acid) 0.4 MG TABLET 1 Tablet ORAL DAILY Days = 30 Comments: NOT GIVEN IN HOSP Lactulose (Lactulose) 10 GM/15 ML SOLUTION 45 Milliliters ORAL THREE TIMES DAILY Days = 30 Comments: LAST TAKEN 01/05 9:15 AM Rifaximin (Xifaxan) 550 MG TABLET 1 Tablet ORAL TWICE DAILY Days = 30 Comments: LAST TAKEN 01/05 9:15 AM Propranolol HCl (Propranolol HCl) 20 MG TABLET 1 Tablet ORAL TWICE DAILY Qty = 60 Comments: LAST TAKEN 01/05 9:15 AM Spironolactone (Spironolactone) 100 MG TABLET 1 Tablet ORAL TWICE DAILY Qty = 60 Comments: LAST TAKEN 01/05 9:15 AM Start taking the following new medications: Ondansetron HCl (Zofran) 4 MG TABLET 1 Tablet ORAL Every 6-8 Hours as Needed Qty = 15 No Refills Copies To: ELIANE RANDALL,RONNA CLARK
== END 2017-01-05 12:52 | disposition home health service (06) | DRG 280 ==
LOC: ERH 18:08 → ERHI 20:31 → 2NA 20:31 → ENRESERV 01-02 00:15 → 2NA 01-02 01:52 → ENPENDDIS 01-05 10:33 → 2NA 01-05 12:52
PROVIDERS: Physician Assistant; Preventive Medicine Public Health & General Preventive Medicine; ADMIT Student in an Organized Health Care Education/Training Program
DX: K70.40 Alcoholic hepatic failure without coma (principal); D69.6 Thrombocytopenia, unspecified; E87.6 Hypokalemia; K80.20 Calculus of gallbladder without cholecystitis without obstruction; K70.31 Alcoholic cirrhosis of liver with ascites; F17.210 Nicotine dependence, cigarettes, uncomplicated; F10.20 Alcohol dependence, uncomplicated
CPT/HCPCS: 2NASP; 87075; ERO; 36415; 80307; 81001; 82436; 87389; 93005; 93010; 96361; 96374; 97112-GO; 97116-GO; 97161-GP; 97530-GO; 99291; G0480; J2405; J7042